=== PATIENT | male | born 2000 | race Caucasian/White ===

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

== ENCOUNTER 2019-01-17 01:10 | Emergency (ER) | payer MEDICAID, OTHER ==
[2019-01-17 02:44] VITALS: PULSE 80
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
[2019-01-17 05:15] VITALS: BP 175/101; O2SAT 98
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
== END 2019-01-17 05:30 | disposition short-term general hospital (02) ==
LOC: ED 01:10
DX: S62.366A Nondisplaced fracture of neck of fifth metacarpal bone, right hand, initial encounter for closed fracture (principal); M79.641 Pain in right hand; M79.89 Other specified soft tissue disorders; W22.09XA Striking against other stationary object, initial encounter; Y92.89 Other specified places as the place of occurrence of the external cause; S62.309A Unspecified fracture of unspecified metacarpal bone, initial encounter for closed fracture
CPT/HCPCS: 73130; 99284

== ENCOUNTER 2021-07-29 12:28 | Emergency (ER) | payer MEDICAID, OTHER ==
--- NOTE | 2021-07-29 12:58 | ERPHSYRPT ---
- History of Present Illness Time Seen by Provider: 07/29/21 12:48 Source: patient Exam Limitations: no limitations Patient Subjective Stated Complaint: Ankle injury Triage Nursing Assessment: Patient ambulated back to ED and transferred self to bed. Patient A+O X3. Patient's skin pink, warm and dry. Patient complains of right ankle pain 10/10 constant aching pain. Patient states right ankle hurts to bear weight. Swelling noted. Patient states he was walking a few days ago when he rolled his ankle and had has pain ever since. Physician History: Patient is a 21-year-old white male who was walking 2 days ago when he rolled his right ankle. He has continued to walk on the ankle because he is required to do so at work. He continues to complain of swelling and pain. He denies any other injury or health problems. Method of Injury: twisted Occurred: days ago (2) Quality: constant Severity of Pain-Max: moderate Severity of Pain-Current: moderate Lower Extremities Pain: ankle: right Modifying Factors: Improves With: movement Allergies/Adverse Reactions: No Known Drug Allergies Allergy (Verified 07/29/21 12:31) Hx Tetanus, Diphtheria Vaccination/Date Given: No Hx Influenza Vaccination/Date Given: No Hx Pneumococcal Vaccination/Date Given: No Immunizations Up to Date: Yes Travel Risk - International Travel Have you traveled outside of the country in past 3 weeks: No - Coronavirus Screening Are you exhibiting any of the following symptoms?: No Close contact with a COVID-19 positive Pt in past 14-21 Days: No - Vaccine Status Have you recieved a Covid-19 vaccination: No - Review of Systems Constitutional: No Fever, No Chills Eyes: No Symptoms Ears, Nose, & Throat: No Symptoms Respiratory: No Cough, No Dyspnea Cardiac: No Chest Pain, No Edema, No Syncope Abdominal/Gastrointestinal: No Abdominal Pain, No Nausea, No Vomiting, No Diarrhea Genitourinary Symptoms: No Dysuria Musculoskeletal: No Back Pain, No Neck Pain Skin: No Rash Neurological: No Dizziness, No Focal Weakness, No Sensory Changes Psychological: No Symptoms Endocrine: No Symptoms All Other Systems: Reviewed and Negative - Past Medical History Pertinent Past Medical History: Yes Musculoskeletal History: Fractures Psycho-Social History: Attention Deficit Disorder - Past Surgical History Past Surgical History: Yes Musculoskeletal: Orthopedic Surgery Other Surgical History: tonsilectomy. right foot/ankle - Social History Smoking Status: Never smoker Exposure to second hand smoke: No Drug Use: none Patient Lives Alone: No - Nursing Vital Signs Nursing Vital Signs: Initial Vital Signs Temperature 98.0 F 07/29/21 12:33 Pulse Rate 56 L 07/29/21 12:33 Respiratory Rate 18 07/29/21 12:33 Blood Pressure 146/81 07/29/21 12:33 O2 Sat by Pulse Oximetry 98 07/29/21 12:33 Pain Scale Pain Intensity 10 - Physical Exam General Appearance: mild distress, obese Eyes, Ears, Nose, Throat Exam: moist mucous membranes Neck Exam: non-tender, supple Back Exam: normal inspection, normal range of motion Hips Exam: bilateral: non-tender, normal inspection, normal range of motion Legs Exam: bilateral leg: non-tender, normal inspection, normal range of motion Knees Exam: bilateral knee: non-tender, normal inspection, normal range of motion Ankle Exam: right ankle: bone tenderness, limited range of motion, pain, soft tissue tenderness, swelling Foot Exam: bilateral foot: non-tender, normal inspection, normal range of motion, no evidence of injury Neuro/Tendon Exam: normal sensation, normal motor functions Mental Status Exam: alert, 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, cooperative Skin Exam: normal color, warm, dry SpO2 Interpretation: normal SpO2: 98 O2 Delivery: Room Air - Radiology Exams Right Ankle X-ray Interpretation: Interpreted by me, Negative Ordered Tests: Active Orders 24 hr Category Date Time Status Cold Application STAT Care 07/29/21 12:33 Active Crutches STAT Care 07/29/21 12:53 Active Splint STAT Care 07/29/21 12:53 Active ANKLE (3 VIEWS) Stat Exams 07/29/21 Taken - Progress Progress: unchanged - Departure Departure Disposition: Home Clinical Impression: Right ankle sprain Condition: Stable Critical Care Time: No Referrals: THERESA SHAFFER MD [Primary Care Provider] - Follow up/PCP as directed Instructions: Ankle Sprain (DC) Prescriptions: Hydrocodone/Acetaminophen [Hydrocodone-Acetamin 5-325 mg] 1 tab PO Q6HPRN PRN 3 Days #12 tablet MDD 4 PRN Reason: Pain
--- NOTE | 2021-07-29 20:36 | XRAY ---
Indication: Pain. Comparison: July 20, 2018. 3 view right ankle obtained. No bony, articular, or soft tissue abnormalities.
== END 2021-07-29 13:04 | disposition home or self-care (01) ==
LOC: ED 12:28
DX: S93.401A Sprain of unspecified ligament of right ankle, initial encounter (principal); V09.1XXA Pedestrian injured in unspecified nontraffic accident, initial encounter; Y93.01 Activity, walking, marching and hiking
CPT/HCPCS: 73610; 99283

== ENCOUNTER 2021-10-06 07:22 | Day surgery (SDC) | payer OTHER ==
[~2021-10-06 07:22] MED LIST: CEFAZOLIN 2 GM-D5W BAG** 2 GM/50 ML ML IV SCH; Lactated Ringers 1,000 ML IV SCH
[2021-10-06] MEDS ORDERED: CEFAZOLIN 2 GM-D5W BAG** 2 GM/50 ML ML IV ONE (07:51)
[2021-10-06] MEDS ORDERED: Lactated Ringers 1,000 ML IV ONE ×2 (07:52→11:50)
[2021-10-06] MEDS ORDERED: DIPRIVAN 200 MG/20 ML IV ONE ×2 (09:29→10:11)
[2021-10-06] MEDS ORDERED: Versed 2 MG/2 ML Injection ONE (09:29)
[2021-10-06] MEDS ORDERED: Quelicin Fliptop 200 MG/10 ML ONE (09:29)
[2021-10-06] MEDS ORDERED: Lactated Ringers 2,000 ML IV ONE (10:25)
[2021-10-06] MEDS ORDERED: BUPIVACAINE 0.5% VIAL IJ ONE (10:26)
[2021-10-06] MEDS ORDERED: XYLOCAINE 1% HCL 20 ML MDV ONE (10:26)
[2021-10-06] MEDS ORDERED: Kenalog-40 IM ONE (10:30)
[2021-10-06] MEDS ORDERED: Sodium Chloride 0.9% 1000 ML 1,000 ML ONE (11:02)
[2021-10-06] MEDS ORDERED: Decadron 4 MG INJ ONE (11:20)
[2021-10-06] MEDS ORDERED: Marcaine 0.5%/Epinephrine 10 ML ONE (11:20)
[2021-10-06] MEDS ORDERED: MORPHINE SULFATE 10 MG/ML ONE (12:14)
[2021-10-06] MEDS ORDERED: SUBLIMAZE 100 MCG/2 ML ONE (12:23)
[2021-10-06] MEDS ORDERED: TORAdol 30 mg Injection ONE (13:01)
[2021-10-06] MEDS ORDERED: Compazine 10 MG/2 ML ONE (13:01)
--- NOTE | 2021-10-06 14:39 | OP ---
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 2) Pain left ankle with positive Aditya's. 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 2) Pain left ankle with positive Aditya's. PROCEDURES: 1) Right ankle arthroscopy with synovectomy. 2) Microfracture of osteochondral defect posterior medial right talar dome. 3) Interarticular injection to left ankle. SURGEON: James Gould DPM. FIELD TECHNICIAN: None. ANESTHESIA: General plus postoperative popliteal and saphenous block. See anesthesia report for details. HEMOSTASIS: Pressure dressing postoperatively. ESTIMATED BLOOD LOSS: Less than 5 cc. MATERIALS: 3-0 Nylon. INJECTABLES: See anesthesia report for details. INDICATION FOR SURGERY: Abran is very pleasant 21 -year-old male who presented to my clinic with complaints of ankle pain. The patient had indications of wrapping up of his ankle with swing phase of gait, pain with ambulation for extended periods of time as well as a previous history of trauma and lateral ankle instability. At that time a MRI was obtained demonstrating an osteochondral defect measuring approximately 0.8 x 0.6 x 0.4 cm in length, width and depth. The patient opted initially to undergo nonsurgical intervention and proceeded with nonweight bearing as well as injection and failed both of those treatments. The patient at this time is willing to proceed with surgical intervention. Prior to surgical intervention the patient was experiencing very similar symptoms to the left lower extremity which he indicated he would like to have an injection while under anesthesia to the opposite extremity this was amenable. The patient understands all of the risks, complications and benefits including but not limited to infection, hematoma, seroma, possible failure of surgical intervention and potential need for surgical intervention in the future. The patient understands all of these risks and wishes to proceed. It is with that we do so. DESCRIPTION OF PROCEDURE AND FINDINGS: The patient was brought into the OR and placed on the OR room table in supine position. General anesthesia was administered to the patient until he was sedated. At this time a thigh méndez was applied to the patient's right lower extremity and the right lower extremity was prepped and draped in typical sterile fashion. At this time 30 cc of lactated Ringers was injected at the anticipated posterior-medial portal insufflating the joint. At this time an 11 blade was utilized to make a skin incision and a blunt curved mini-hemostat was utilized to puncture through the capsule of the anterior-medial aspect of the ankle joint. At this time the obturator and blunt trocar was introduced through the anterior-medial portal, removed and the camera was introduced. On the first time the camera was then pointed at the anterior-lateral aspect of the ankle capsule and utilizing the translumination 11 blade was utilized to make an incision at this site and using blunt dissection to perforate into the anterior-lateral aspect of the ankle capsule. At this time a significant amount of synovitis was identified and debrided from the anterior aspect of the ankle joint working our way back utilizing a medial to lateral approach. The synovitis was cleaned out from the hypertrophic areas in order to better visualize the entire ankle joint. At this time the posterior-medial talar dome of the ankle was identified and a blunt probe was utilized to cut the cartilage. The cartilage was weak at the posterior-medial aspect of the medial shoulder which was then debrided utilizing a combination of graspers, 3.7 mm aggressive shaver as well as curettage. The lesion at the medial talar dome is consistent with the area noted on the MRI that was obtained prior to surgical intervention. However demonstrated cartilage that was partially intact which was removed, debrided revealing the subchondral plate below. The subchondral plate was probed and deemed to be adequate for microfracture at this time. Microfracture was performed utilizing 60 degree microfracture pick at four specific points on the shoulder. The remaining joint was inspected for any areas of impingement. The AI TFO was debrided of low lying portion to prevent any anterior ankle impingement. The remaining structures appeared to be within normal limits and the remainder of synovectomy at this time was debrided utilizing aggressive shaver. Following this the trocar, camera and the shaver was removed from the surgical site. The ankle was flexed in dorsiflexion in order to expel the lactated Ringers from the ankle. Following this simple interrupted sutures of 3-0 Nylon was utilized to coapt the arthroscopic sites. Following this copious amounts of sterile saline were utilized in a superficial flush-type fashion to cleanse the skin this was dried and iodine, Adaptic, 4x4, Kerlix and a well-padded posterior splint was applied to the right lower extremity at this time. Following this the left lower extremity was prepped with some iodine at the ankle joint. An injection consisting of 3 cc of 1% lidocaine plain, 3 cc of 0.5% bupivacaine plain and 1 cc of Kenalog 40 mg/kg was injected into the left ankle in an interarticular ankle block-type fashion following this a Band-Aid was applied to the left ankle. Patient was then provided a postoperative popliteal and saphenous block to the right lower extremity. The patient was taken to the postoperative anesthesia care unit with vital signs stable and vascular status intact. The patient handled the anesthesia as well as the procedure without significant complication. Postoperative orders as indicated in the patients discharge chart.
[2021-10-06 14:47] VITALS: O2SAT 93
[2021-10-06 15:01] VITALS: BP 154/86; PULSE 78
== END 2021-10-06 14:35 | disposition home or self-care (01) ==
LOC: SDC 07:22
PROVIDERS: ATTEND Podiatrist Foot & Ankle Surgery
DX: M25.571 Pain in right ankle and joints of right foot (principal); S93.491A Sprain of other ligament of right ankle, initial encounter; M85.671 Other cyst of bone, right ankle and foot; M25.572 Pain in left ankle and joints of left foot; M21.961 Unspecified acquired deformity of right lower leg; R01.1 Cardiac murmur, unspecified; Z79.899 Other long term (current) drug therapy
CPT/HCPCS: 28100; 29895; 64447; 64450; 76942; 93005; J0330; J0690; J1100; J1885; J2250; J2270; J2704; J3010; J3301

== ENCOUNTER 2022-05-01 19:34 | Inpatient (IN) | payer OTHER ==
[2022-05-01] MEDS ORDERED: MORPHINE SULFATE 4 MG INJ IV ONE (20:23)
[2022-05-01] MEDS ORDERED: Zofran 4 MG/2 ML VIAL IV ONE (20:24)
[2022-05-01] MEDS ORDERED: Zofran 4 MG/2 ML VIAL ONE (20:35)
[2022-05-01] MEDS ORDERED: MORPHINE SULFATE 4 MG INJ ONE (20:35)
[2022-05-01 20:37] LABS: Absolute Neutrophil Ct (ANC) 13.35 x10^3/uL (1.4-6.9); Basophil (Absolute #) 0.07 x10^3/uL (0-0.4); Eosinophil % 2.8 % (0.00-5.0); Hemoglobin 14.2 g/dL (12.5-18.0); Lymphocyte (Absolute #) 2.19 x10^3/uL (1.0-4.6); Lymphocytes % 12.2 % (24.0-44.0); Mean Cell Volume 90.3 fL (78-100); Mean Corpuscular Hemoglobin 29.2 pg (26-32); Mean Corpuscular Hgb Concent. 32.3 g/dL (32-36); Mean Platelet Volume 10.8 fL (7.5-11.0); Monocyte (Absolute #) 1.71 x10^3/uL (0.0-1.3); Monocytes % 9.6 % (0.0-12.0); Neutrophil % 74.6 % (36.0-66.0); Platelet Count 242 x10^3/uL (150-450); Red Blood Count 4.87 x10^6/uL (4.1-5.6); Red Cell Distribution Width 14.1 % (11.5-14.0); White Blood Count 17.9 x10^3/uL (4.0-10.5)
[2022-05-01 20:52] LABS: ALBUMIN 4.7 g/dL (3.5-5.0); ALKALINE PHOSPHATASE 92 U/L (38-126); ANION GAP 15.3 MEQ/L (5-15); BLOOD UREA NITROGEN 8 mg/dL (9-20); CHLORIDE 98 mmol/L (98-107); Calcium 9.6 mg/dL (8.4-10.2); Carbon Dioxide 26 mmol/L (22-30); Creatinine 1 1.26 mg/dL (0.66-1.25); EST GLOMERULAR FILTRATION RATE > 60.0 ML/MIN; Glucose 120 mg/dL (74-106); Potassium 3.6 mmol/L (3.5-5.1); SGOT/AST 39 U/L (17-59); SGPT/ALT 43 U/L (0-50); SODIUM 136 mmol/L (137-145); Total Protein 8.6 g/dL (6.3-8.2)
[2022-05-01] MEDS ORDERED: VANCOMYCIN 1 GRAM/200 ML BAG 1 GM/200 ML PIGGYBACK IV ONE ×2 (22:32→23:15)
[2022-05-01] MEDS ORDERED: PIPERACILLIN/TAZOBACTAM 3.375 GM in Sodium Chloride 100ML MINI-BAG PLUS 100 ML IV ONE (22:33)
[2022-05-01] MEDS ORDERED: Sodium Chloride 100ML MINI-BAG PLUS 100 ML IV ONE (22:38)
[2022-05-01] MEDS ORDERED: PIPERACILLIN/TAZOBACTAM IV ONE (22:38)
--- NOTE | 2022-05-01 23:02 | ERPHSYRPT ---
- History of Present Illness Time Seen by Provider: 05/01/22 19:55 Source: patient Exam Limitations: no limitations Patient Subjective Stated Complaint: pt states "I have a spot on my buttock that started 3 days ago. It started bleeding and draining yellow liquid." Triage Nursing Assessment: pt ambulatory to bed by self, pt alert and oriented x3, pt c/o abscess located in L inner buttock that started 3 days ago, pt denies fever, last known dose of tylenol and motrin was at 1630 but did not help the pain, pt having trouble sitting on the bed or walking without pain Physician History: Patient is a 22-year-old male presents to our ED for evaluation of left buttock and rectal pain. Symptoms started approximately 3 days ago. Symptoms have been progressive. Today patient observed the area draining purulent material. In spite of the drainage patient experiencing significant pain. Patient states the pain is tracking proximal to the rectum. Patient denies a history of the same. No trauma. No fever. Symptoms are moderate in intensity. Patient states he is unable to walk or sit due to the level of pain. No objective fevers measured at home. Patient states otherwise healthy. He voices no other complaints or concerns at this time. Timing/Duration: day(s) (3 days ago) Severity: moderate Modifying Factors: Improves With: nothing Associated Symptoms: denies symptoms Allergies/Adverse Reactions: No Known Drug Allergies Allergy (Verified 05/01/22 19:46) Home Medications: No Reportable Medications [No Reported Medications] 05/02/22 [History] Hx Tetanus, Diphtheria Vaccination/Date Given: Yes Hx Influenza Vaccination/Date Given: No Hx Pneumococcal Vaccination/Date Given: No Immunizations Up to Date: Yes Travel Risk - International Travel Have you traveled outside of the country in past 3 weeks: No - Coronavirus Screening Are you exhibiting any of the following symptoms?: No Close contact with a COVID-19 positive Pt in past 14-21 Days: No - Vaccine Status Have you recieved a Covid-19 vaccination: No - Review of Systems Constitutional: No Symptoms, No Fever, No Chills Eyes: No Symptoms Ears, Nose, & Throat: No Symptoms Respiratory: No Symptoms, No Cough, No Dyspnea Cardiac: No Symptoms, No Chest Pain, No Edema, No Syncope Abdominal/Gastrointestinal: No Symptoms, No Abdominal Pain, No Nausea, No Vomiting, No Diarrhea Genitourinary Symptoms: No Symptoms, No Dysuria Musculoskeletal: No Symptoms, No Back Pain, No Neck Pain Skin: No Symptoms, No Rash Neurological: No Symptoms, No Dizziness, No Focal Weakness, No Sensory Changes Psychological: No Symptoms Endocrine: No Symptoms Hematologic/Lymphatic: No Symptoms Immunological/Allergic: No Symptoms All Other Systems: Reviewed and Negative - Past Medical History Pertinent Past Medical History: Yes Musculoskeletal History: Fractures Psycho-Social History: Attention Deficit Disorder - Past Surgical History Past Surgical History: Yes Musculoskeletal: Orthopedic Surgery Other Surgical History: tonsilectomy - Social History Smoking Status: Never smoker Exposure to second hand smoke: Yes Drug Use: marijuana Patient Lives Alone: No - Nursing Vital Signs Nursing Vital Signs: Initial Vital Signs Temperature 97.6 F 05/01/22 19:49 Pulse Rate 117 H 05/01/22 19:49 Respiratory Rate 18 05/01/22 19:49 Blood Pressure 138/76 05/01/22 19:49 O2 Sat by Pulse Oximetry 97 05/01/22 19:49 Pain Scale Pain Intensity 5 - Physical Exam General Appearance: no apparent distress, alert Eye Exam: PERRL/EOMI, eyes nml inspection Ears, Nose, Throat Exam: normal ENT inspection, TMs normal, pharynx normal, moist mucous membranes Neck Exam: normal inspection, non-tender, supple, full range of motion Respiratory Exam: normal breath sounds, lungs clear, airway intact, No respiratory distress Cardiovascular Exam: regular rate/rhythm, normal heart sounds, normal peripheral pulses Gastrointestinal/Abdomen Exam: soft, normal bowel sounds, No tenderness, No mass Back Exam: normal inspection, normal range of motion, No CVA tenderness, No vertebral tenderness Extremity Exam: normal inspection, normal range of motion, pelvis stable Neurologic Exam: alert, 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, cooperative, normal mood/affect, nml cerebellar function, nml station & gait, sensation nml, No motor deficits Skin Exam: normal color, warm, dry, other (Indurated skin and cellulitis tracking proximally into the rectum. There is a draining sinus observed. Patient has significant pain at this location), No rash Lymphatic Exam: No adenopathy SpO2 Interpretation: normal SpO2: 97 O2 Delivery: Room Air - Course Nursing assessment & vital signs reviewed: Yes - CT Exams Abdomen/Pelvis CT Interpretation: Tele-radiologist Report (No comps. Moderate cellulitis centered at anus and gluteus. No abscess or subcutaneous air. Incidental 25.4 cm fatty hepatomegaly, diverticulosis and remote left L1 fracture with 25% height loss) Ordered Tests: Medication Summary Generic Name Dose Route Start Last Admin Trade Name Antony PRN Reason Stop Dose Admin Hydrocodone Bitart/Acetaminophen 1 tab 05/02/22 20:09 05/03/22 23:48 Hydrocodone/Apap 5/325 Mg Tablet PO 05/07/22 20:08 1 tab Q4H PRN PRN Administration PAIN Piperacillin Sod/Tazobactam 100 mls @ 200 mls/hr 05/02/22 06:00 05/04/22 05:25 Sod 3.375 gm/ Sodium Chloride IV 05/05/22 05:59 200 mls/hr Q6HT ROSE Administration Metronidazole 500 mg in 100 mls @ 200 mls/hr 05/02/22 22:00 05/03/22 22:02 Flagyl 500 Mg Ivpb IV 06/01/22 21:59 200 mls/hr Q8HT ROSE Administration Morphine Sulfate 3 mg 05/02/22 20:08 05/03/22 22:03 Morphine Sulfate 4 Mg/Ml Injection IV 05/07/22 20:07 3 mg Q1HPRN PRN Administration PAIN Ondansetron HCl 4 mg 05/02/22 00:36 Ondansetron Hcl 4 Mg/2 Ml Vial IV 06/01/22 00:35 Q6H PRN PRN NAUSEA/VOMITING Discontinued Medications Generic Name Dose Route Start Last Admin Trade Name Antony PRN Reason Stop Dose Admin Vancomycin HCl 1 gm in 200 mls @ 125 mls/hr 05/01/22 22:32 05/01/22 23:16 Vancomycin 1 Gram/200 Ml Bag IV 05/02/22 00:07 125 ml/hr STAT ONE 125 mls/hr Administration Piperacillin Sod/Tazobactam 100 mls @ 200 mls/hr 05/01/22 22:33 05/01/22 22:40 Sod 3.375 gm/ Sodium Chloride IV 05/01/22 23:02 200 mls/hr STAT ONE Administration Sodium Chloride Confirm 05/01/22 22:38 Sodium Chloride 100ml Mini-Bag Plus Administered 05/01/22 22:39 Dose 100 mls @ ud IV .STK-MED ONE Vancomycin HCl Confirm 05/01/22 23:15 Vancomycin 1 Gram/200 Ml Bag Administered 05/01/22 23:16 Dose 1 gm in 200 mls @ ud IV .STK-MED ONE Sodium Chloride Confirm 05/02/22 04:36 Sodium Chloride 100ml Mini-Bag Plus Administered 05/02/22 04:37 Dose 100 mls @ ud IV .STK-MED ONE Lactated Ringer's 1,000 mls @ 50 mls/hr 05/02/22 18:00 05/03/22 16:18 Lactated Ringers IV 06/01/22 17:59 Not Given .Q20H ROSE Lidocaine/Epinephrine Confirm 05/02/22 18:43 Lidocaine Hcl/Epinephrine 1% 20 Ml Administered 05/02/22 18:44 Dose 1 ml .ROUTE .STK-MED ONE Morphine Sulfate 4 mg 05/01/22 20:23 05/01/22 20:37 Morphine Sulfate 4 Mg/Ml Injection IV 05/01/22 20:24 4 mg STAT ONE Administration Morphine Sulfate Confirm 05/01/22 20:35 Morphine Sulfate 4 Mg/Ml Injection Administered 05/01/22 20:36 Dose 4 mg .ROUTE .STK-MED ONE Morphine Sulfate 4 mg 05/02/22 00:36 05/02/22 22:20 Morphine Sulfate 4 Mg/Ml Injection IV 05/07/22 00:35 4 mg Q4H PRN PRN Administration PAIN Morphine Sulfate Confirm 05/02/22 19:18 Morphine Sulfate 10 Mg/Ml Injection Administered 05/02/22 19:19 Dose 10 mg .ROUTE .STK-MED ONE Ondansetron HCl 4 mg 05/01/22 20:24 05/01/22 20:37 Ondansetron Hcl 4 Mg/2 Ml Vial IV 05/01/22 20:25 4 mg STAT ONE Administration Ondansetron HCl Confirm 05/01/22 20:35 Ondansetron Hcl 4 Mg/2 Ml Vial Administered 05/01/22 20:36 Dose 4 mg .ROUTE .STK-MED ONE Piperacillin Sod/Tazobactam Sod Confirm 05/01/22 22:38 Piperacillin/Tazobactam Sodium 3.375 Gm Vial Administered 05/01/22 22:39 Dose 3.375 gm IV .STK-MED ONE Piperacillin Sod/Tazobactam Sod Confirm 05/02/22 04:34 Piperacillin/Tazobactam Sodium 3.375 Gm Vial Administered 05/02/22 04:35 Dose 3.375 gm IV .[facility] ONE Lab/Rad Data: Laboratory Result Diagrams 05/01/22 20:35 05/01/22 20:35 Laboratory Results 05/01/22 05/01/22 05/01/22 Range/Units 22:38 20:35 20:35 WBC 17.9 H (4.0-10.5) x10^3/uL RBC 4.87 (4.1-5.6) x10^6/uL Hgb 14.2 (12.5-18.0) g/dL Hct 44.0 (42-50) % MCV 90.3 (78-100) fL MCH 29.2 (26-32) pg MCHC 32.3 (32-36) g/dL RDW 14.1 H (11.5-14.0) % Plt Count 242 (150-450) x10^3/uL MPV 10.8 (7.5-11.0) fL Gran % 74.6 H (36.0-66.0) % Immature Gran % (Auto) 0.4 (0.00-0.4) % Nucleat RBC Rel Count 0.0 (0.00-0.1) % Eos # (Auto) 0.50 (0-0.5) x10^3/uL Immature Gran # (Auto) 0.07 H (0.00-0.03) x10^3u/L Absolute Lymphs (auto) 2.19 (1.0-4.6) x10^3/uL Absolute Monos (auto) 1.71 H (0.0-1.3) x10^3/uL Absolute Nucleated RBC 0.00 (0.00-0.01) x10^3u/L Lymphocytes % 12.2 L (24.0-44.0) % Monocytes % 9.6 (0.0-12.0) % Eosinophils % 2.8 (0.00-5.0) % Basophils % 0.4 (0.0-0.4) % Absolute Granulocytes 13.35 H (1.4-6.9) x10^3/uL Basophils # 0.07 (0-0.4) x10^3/uL Sodium 136 L (137-145) mmol/L Potassium 3.6 (3.5-5.1) mmol/L Chloride 98 (98-107) mmol/L Carbon Dioxide 26 (22-30) mmol/L Anion Gap 15.3 H (5-15) MEQ/L BUN 8 L (9-20) mg/dL Creatinine 1.26 H (0.66-1.25) mg/dL Estimated GFR > 60.0 ML/MIN Glucose 120 H (74-106) mg/dL Calcium 9.6 (8.4-10.2) mg/dL Total Bilirubin 1.40 H (0.2-1.3) mg/dL AST 39 (17-59) U/L ALT 43 (0-50) U/L Alkaline Phosphatase 92 (38-126) U/L Serum Total Protein 8.6 H (6.3-8.2) g/dL Albumin 4.7 (3.5-5.0) g/dL Influenza Type A Ag NEGATIVE (NEGATIVE) Influenza Type B Ag NEGATIVE (NEGATIVE) RSV (PCR) NEGATIVE (Negative) SARS-CoV-2 (PCR) POSITIVE A (NEGATIVE) - Progress Progress: improved Progress Note: Case discussed with who accepts admission to observation. In light of patient's cellulitis antibiotics initiated. Plan of care discussed with patient. He agrees to admission at [facility] for further evaluation and treatment. Portions of this note were created with voice recognition technology. There may be grammatical, spelling, punctuation or sound alike errors 05/04/22 06:32 Discussed with : Carmen Will see patient in: hospital (observation) Counseled pt/family regarding: lab results, diagnosis, rad results - Departure Departure Disposition: Observation Clinical Impression: Hepatomegaly, Diverticulosis, Remote L1 fracture Cellulitis Qualifiers: Site of cellulitis: buttock Qualified Code(s): L03.317 - Cellulitis of buttock Condition: Stable Critical Care Time: No
[2022-05-01 23:17] LABS: INFLUENZA A NEGATIVE (NEGATIVE); INFLUENZA B NEGATIVE (NEGATIVE); RESPIRATORY SYNCTIAL VIRUS NEGATIVE (Negative)
[2022-05-01 23:29] LABS: SARS-CoV-2 Xpert Express POSITIVE (NEGATIVE)
[2022-05-02] MEDS ORDERED: Zofran 4 MG/2 ML VIAL IV PRN (00:36)
[2022-05-02] MEDS: MORPHINE SULFATE 4 MG INJ IV PRN ×4 (00:44→22:20)
[2022-05-02] MEDS ORDERED: PIPERACILLIN/TAZOBACTAM IV ONE (04:34)
[2022-05-02] MEDS ORDERED: Sodium Chloride 100ML MINI-BAG PLUS 100 ML IV ONE (04:36)
[2022-05-02 05:18] LABS: Absolute Neutrophil Ct (ANC) 11.09 x10^3/uL (1.4-6.9); Eosinophil % 3.7 % (0.00-5.0); Eosinophil (Absolute #) 0.64 x10^3/uL (0-0.5); Hematocrit 41.5 % (42-50); Hemoglobin 13.4 g/dL (12.5-18.0); Lymphocyte (Absolute #) 3.66 x10^3/uL (1.0-4.6); Mean Cell Volume 90.4 fL (78-100); Mean Corpuscular Hemoglobin 29.2 pg (26-32); Mean Corpuscular Hgb Concent. 32.3 g/dL (32-36); Mean Platelet Volume 11.5 fL (7.5-11.0); Monocyte (Absolute #) 1.82 x10^3/uL (0.0-1.3); Monocytes % 10.5 % (0.0-12.0); Neutrophil % 63.7 % (36.0-66.0); Platelet Count 218 x10^3/uL (150-450); Red Blood Count 4.59 x10^6/uL (4.1-5.6); Red Cell Distribution Width 14.5 % (11.5-14.0); White Blood Count 17.4 x10^3/uL (4.0-10.5)
[2022-05-02] MEDS: PIPERACILLIN/TAZOBACTAM 3.375 GM in Sodium Chloride 100ML MINI-BAG PLUS 100 ML IV SCH ×4 (05:43→22:59)
[2022-05-02 06:09] LABS: ALBUMIN 4.2 g/dL (3.5-5.0); ALKALINE PHOSPHATASE 92 U/L (38-126); ANION GAP 12.1 MEQ/L (5-15); BLOOD UREA NITROGEN 8 mg/dL (9-20); CHLORIDE 99 mmol/L (98-107); Calcium 9.1 mg/dL (8.4-10.2); Carbon Dioxide 28 mmol/L (22-30); Creatinine 1 1.08 mg/dL (0.66-1.25); EST GLOMERULAR FILTRATION RATE > 60.0 ML/MIN; Glucose 134 mg/dL (74-106); Potassium 3.5 mmol/L (3.5-5.1); SGOT/AST 37 U/L (17-59); SGPT/ALT 35 U/L (0-50); SODIUM 135 mmol/L (137-145); Total Protein 7.4 g/dL (6.3-8.2)
[2022-05-02 06:49] LABS: Slide Review 1 YES
--- NOTE | 2022-05-02 08:54 | XRAY ---
Indication: Rectal pain and bleeding. Constipation. Perirectal abscess. Multiple contiguous axial images obtained through the abdomen and pelvis using 100 cc Isovue 370 contrast. Comparison: None Lung bases are hyperinflated with small subpleural right lower lobe calcified granuloma. No infiltrate or effusion. Heart not enlarged. There is moderate cutaneous/subcutaneous induration centered around the anus and surrounding gluteus favoring cellulitis. No abscess or subcutaneous emphysema. A few prominent bilateral iliac chain and bilateral inguinal lymph nodes, largest on the left measuring 2.1 x 3.4 cm presumed reactive. Stomach is distended with food/fluid. Noncontrasted stomach and bowel loops appear nonobstructed with normal appendix. No free fluid/air. Incidental 25.4 cm fatty hepatomegaly. Remaining liver, gallbladder, pancreas, spleen, adrenal glands, kidneys, ureters, bladder, and aorta are unremarkable. Osseous structures intact with remote appearing L1 superior endplate fracture with approximately 25% height loss. Small multilevel thoracolumbar Schmorl nodes. Impression: 1. Cellulitis centered around the anus and surrounding gluteus. No abscess or subcutaneous emphysema. Reactive prominent bilateral pelvic/inguinal lymphadenopathy. 2. Incidental fatty hepatomegaly and remote L1 endplate fracture. 3. Remaining CT abdomen/pelvis with contrast exam is negative.
[2022-05-02] MEDS: Lactated Ringers 1,000 ML IV SCH (17:36)
--- NOTE | 2022-05-02 18:25 | PCM.HP ---
History of Present Illness - Chief Complaint Chief Complaint: swelling on buttock area for 1 week History of Present Illness: is a 22 year old male.presents to our ED for evaluation of left buttock and rectal pain. Symptoms started approximately 3 days ago. Symptoms have been progressive. Today patient observed the area draining purulent material. In spite of the drainage patient experiencing significant pain. Patient states the pain is tracking proximal to the rectum. Patient denies a history of the same. No trauma. No fever. Symptoms are moderate in intensity. Patient states he is unable to walk or sit due to the level of pain. No objective fevers measured at home. Patient states otherwise healthy. He voices no other complaints or concerns at this time. Timing/Duration: day(s) (3 days ago) Severity: moderate Modifying Factors: Improves With: nothing Associated Symptoms: denies symptoms - Review of Systems Constitutional: No Fever, No Chills Eyes: No Symptoms Ears, Nose, & Throat: No Symptoms Respiratory: No Cough, No Short Of Breath Cardiac: No Chest Pain, No Edema, No Syncope Abdominal/Gastrointestinal: No Abdominal Pain, No Nausea, No Vomiting, No Diarrhea Genitourinary Symptoms: No Dysuria Musculoskeletal: No Back Pain, No Neck Pain Skin: Cellulitis, No Rash Neurological: No Dizziness, No Focal Weakness, No Sensory Changes Psychological: No Symptoms Endocrine: No Symptoms Hematologic/Lymphatic: No Symptoms Immunological/Allergic: No Symptoms Medications & Allergies Home Medications: Home Medication List No Reportable Medications [No Reported Medications] 05/02/22 [History Confirmed 05/02/22] Allergies/Adverse Reactions: Allergies Allergy/AdvReac Type Severity Reaction Status Date / Time No Known Drug Allergies Allergy Verified 05/01/22 19:46 - Past Medical History Past Medical History: Yes Neurological History: No Pertinent History ENT History: No Pertinent History Cardiac History: No Pertinent History Respiratory History: No Pertinent History Endocrine Medical History: No Pertinent History Musculoskelatal History: No Pertinent History, Fractures GI Medical History: No Pertinent History History: No Pertinent History Pyscho-Social History: Attention Deficit Disorder Male Reproductive Disorders: No Pertinent History - Past Surgical History Past Surgical History: Yes Cardiac History: No Pertinent History GI Surgical History: No Pertinent History Genitourinary Surgical Hx: No Pertinent History Musculskeletal Surgical Hx: Orthopedic Surgery Other Surgical History: tonsilectomy - Social History Smoking Status: Never smoker Exposure to second hand smoke: No Alcohol: None Drug Use: marijuana - Physical Exam Vital Signs: Vital Signs - 24 hr Temp Pulse Resp BP Pulse Ox 05/02/22 17:40 98.0 F 60 16 118/70 95 05/02/22 16:00 98.0 F 60 16 118/70 95 05/02/22 12:00 97.9 F 71 16 144/88 98 05/02/22 07:55 97.6 F 64 16 133/75 97 05/02/22 04:00 97.7 F 80 19 134/74 94 L 05/02/22 01:54 98.4 F 67 20 123/63 94 L 05/02/22 01:21 92 L 05/02/22 01:18 77 16 92 L 05/01/22 23:50 80 18 128/63 95 05/01/22 23:04 97 05/01/22 21:47 90 18 97 05/01/22 20:42 96 H 18 129/67 96 05/01/22 19:49 97.6 F 117 H 18 138/76 97 General Appearance: no apparent distress, alert Neurologic Exam: alert, 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, cooperative, normal mood/affect, nml cerebellar function, nml station & gait, sensation nml, No motor deficits Eye Exam: PERRL/EOMI, eyes nml inspection Ears, Nose, Throat Exam: normal ENT inspection, TMs normal, pharynx normal, moist mucous membranes Neck Exam: normal inspection, non-tender, supple, full range of motion Respiratory Exam: normal breath sounds, lungs clear, No respiratory distress Cardiovascular Exam: regular rate/rhythm, normal heart sounds, normal peripheral pulses Gastrointestinal/Abdomen Exam: soft, normal bowel sounds, No tenderness, No mass Back Exam: normal inspection, normal range of motion, No CVA tenderness, No vertebral tenderness Extremity Exam: normal inspection, normal range of motion, pelvis stable Skin Exam: normal color, warm, dry, other (abscess on right buttock), No rash Lymphatic Exam: No adenopathy Results - Labs Lab/Micro Results: Lab Results-Last 24 Hours 05/01/22 05/01/22 05/01/22 Range/Units 20:35 20:35 22:38 WBC 17.9 H (4.0-10.5) x10^3/uL RBC 4.87 (4.1-5.6) x10^6/uL Hgb 14.2 (12.5-18.0) g/dL Hct 44.0 (42-50) % MCV 90.3 (78-100) fL MCH 29.2 (26-32) pg MCHC 32.3 (32-36) g/dL RDW 14.1 H (11.5-14.0) % Plt Count 242 (150-450) x10^3/uL MPV 10.8 (7.5-11.0) fL Gran % 74.6 H (36.0-66.0) % Immature Gran % (Auto) 0.4 (0.00-0.4) % Nucleat RBC Rel Count 0.0 (0.00-0.1) % Eos # (Auto) 0.50 (0-0.5) x10^3/uL Immature Gran # (Auto) 0.07 H (0.00-0.03) x10^3u/L Absolute Lymphs (auto) 2.19 (1.0-4.6) x10^3/uL Absolute Monos (auto) 1.71 H (0.0-1.3) x10^3/uL Absolute Nucleated RBC 0.00 (0.00-0.01) x10^3u/L Lymphocytes % 12.2 L (24.0-44.0) % Monocytes % 9.6 (0.0-12.0) % Eosinophils % 2.8 (0.00-5.0) % Basophils % 0.4 (0.0-0.4) % Absolute Granulocytes 13.35 H (1.4-6.9) x10^3/uL Basophils # 0.07 (0-0.4) x10^3/uL Sodium 136 L (137-145) mmol/L Potassium 3.6 (3.5-5.1) mmol/L Chloride 98 (98-107) mmol/L Carbon Dioxide 26 (22-30) mmol/L Anion Gap 15.3 H (5-15) MEQ/L BUN 8 L (9-20) mg/dL Creatinine 1.26 H (0.66-1.25) mg/dL Estimated GFR > 60.0 ML/MIN Glucose 120 H (74-106) mg/dL Calcium 9.6 (8.4-10.2) mg/dL Total Bilirubin 1.40 H (0.2-1.3) mg/dL AST 39 (17-59) U/L ALT 43 (0-50) U/L Alkaline Phosphatase 92 (38-126) U/L Serum Total Protein 8.6 H (6.3-8.2) g/dL Albumin 4.7 (3.5-5.0) g/dL Influenza Type A Ag NEGATIVE (NEGATIVE) Influenza Type B Ag NEGATIVE (NEGATIVE) RSV (PCR) NEGATIVE (Negative) SARS-CoV-2 (PCR) POSITIVE A (NEGATIVE) Slides for Path Review 05/02/22 05/02/22 Range/Units 04:20 04:20 WBC 17.4 H (4.0-10.5) x10^3/uL RBC 4.59 (4.1-5.6) x10^6/uL Hgb 13.4 (12.5-18.0) g/dL Hct 41.5 L (42-50) % MCV 90.4 (78-100) fL MCH 29.2 (26-32) pg MCHC 32.3 (32-36) g/dL RDW 14.5 H (11.5-14.0) % Plt Count 218 (150-450) x10^3/uL MPV 11.5 H (7.5-11.0) fL Gran % 63.7 (36.0-66.0) % Immature Gran % (Auto) 0.5 H (0.00-0.4) % Nucleat RBC Rel Count 0.0 (0.00-0.1) % Eos # (Auto) 0.64 H (0-0.5) x10^3/uL Immature Gran # (Auto) 0.08 H (0.00-0.03) x10^3u/L Absolute Lymphs (auto) 3.66 (1.0-4.6) x10^3/uL Absolute Monos (auto) 1.82 H (0.0-1.3) x10^3/uL Absolute Nucleated RBC 0.00 (0.00-0.01) x10^3u/L Lymphocytes % 21.0 L (24.0-44.0) % Monocytes % 10.5 (0.0-12.0) % Eosinophils % 3.7 (0.00-5.0) % Basophils % 0.6 (0.0-0.4) % Absolute Granulocytes 11.09 H (1.4-6.9) x10^3/uL Basophils # 0.10 (0-0.4) x10^3/uL Sodium 135 L (137-145) mmol/L Potassium 3.5 (3.5-5.1) mmol/L Chloride 99 (98-107) mmol/L Carbon Dioxide 28 (22-30) mmol/L Anion Gap 12.1 (5-15) MEQ/L BUN 8 L (9-20) mg/dL Creatinine 1.08 (0.66-1.25) mg/dL Estimated GFR > 60.0 ML/MIN Glucose 134 H (74-106) mg/dL Calcium 9.1 (8.4-10.2) mg/dL Total Bilirubin 1.10 (0.2-1.3) mg/dL AST 37 (17-59) U/L ALT 35 (0-50) U/L Alkaline Phosphatase 92 (38-126) U/L Serum Total Protein 7.4 (6.3-8.2) g/dL Albumin 4.2 (3.5-5.0) g/dL Influenza Type A Ag (NEGATIVE) Influenza Type B Ag (NEGATIVE) RSV (PCR) (Negative) SARS-CoV-2 (PCR) (NEGATIVE) Slides for Path Review YES - Radiology Impressions Radiology Exams & Impressions: Radiology Procedures Category Date Time Status ABDOMEN AND PELVIS W CONTRAST [CT] Stat Exams 05/01/22 20:23 Completed Assessment/Plan (1) Cellulitis Current Visit: Yes Status: Acute Qualifiers: Site of cellulitis: buttock Qualified Code(s): L03.317 - Cellulitis of buttock Assessment & Plan: Chief Complaint Diagnosis Abscess, cellulitis, COVID Allergies Allergy/AdvReac Type Severity Reaction Status Date / Time No Known Drug Allergies Allergy Verified 05/01/22 19:46 Vital Signs (Last 24 hours) Temp Pulse Resp BP Pulse Ox 05/02/22 17:40 98.0 F 60 16 118/70 95 05/02/22 16:00 98.0 F 60 16 118/70 95 05/02/22 12:00 97.9 F 71 16 144/88 98 05/02/22 07:55 97.6 F 64 16 133/75 97 05/02/22 04:00 97.7 F 80 19 134/74 94 L 05/02/22 01:54 98.4 F 67 20 123/63 94 L 05/02/22 01:21 92 L 05/02/22 01:18 77 16 92 L 05/01/22 23:50 80 18 128/63 95 05/01/22 23:04 97 05/01/22 21:47 90 18 97 05/01/22 20:42 96 H 18 129/67 96 05/01/22 19:49 97.6 F 117 H 18 138/76 97 Home Medications Medication Instructions Recorded Confirmed Last Taken Type No Reportable Medications [No 05/02/22 05/02/22 Unknown History Reported Medications] Current Medications Generic Name Dose Route Start Last Admin Trade Name Freq PRN Reason Stop Dose Admin Piperacillin Sod/Tazobactam 100 mls @ 200 mls/hr 05/02/22 06:00 05/02/22 17:36 Sod 3.375 gm/ Sodium Chloride IV 05/05/22 05:59 200 mls/hr Q6HT ROSE Administration Lactated Ringer's 1,000 mls @ 50 mls/hr 05/02/22 18:00 05/02/22 17:36 Lactated Ringers IV 06/01/22 17:59 50 mls/hr .Q20H ROSE Administration Morphine Sulfate 4 mg 05/02/22 00:36 05/02/22 15:33 Morphine Sulfate 4 Mg/Ml Injection IV 05/07/22 00:35 4 mg Q4H PRN PRN Administration PAIN Ondansetron HCl 4 mg 05/02/22 00:36 Ondansetron Hcl 4 Mg/2 Ml Vial IV 06/01/22 00:35 Q6H PRN PRN NAUSEA/VOMITING Discontinued Medications Generic Name Dose Route Start Last Admin Trade Name Freq PRN Reason Stop Dose Admin Vancomycin HCl 1 gm in 200 mls @ 125 mls/hr 05/01/22 22:32 05/01/22 23:16 Vancomycin 1 Gram/200 Ml Bag IV 05/02/22 00:07 125 ml/hr STAT ONE 125 mls/hr Administration Piperacillin Sod/Tazobactam 100 mls @ 200 mls/hr 05/01/22 22:33 08/09/22 22:40 Sod 3.375 gm/ Sodium Chloride IV 05/01/22 23:02 200 mls/hr STAT ONE Administration Sodium Chloride Confirm 05/01/22 22:38 Sodium Chloride 100ml Mini-Bag Plus Administered 05/01/22 22:39 Dose 100 mls @ ud IV .STK-MED ONE Vancomycin HCl Confirm 05/01/22 23:15 Vancomycin 1 Gram/200 Ml Bag Administered 05/01/22 23:16 Dose 1 gm in 200 mls @ ud IV .STK-MED ONE Sodium Chloride Confirm 05/02/22 04:36 Sodium Chloride 100ml Mini-Bag Plus Administered 05/02/22 04:37 Dose 100 mls @ ud IV .STK-MED ONE Morphine Sulfate 4 mg 05/01/22 20:23 05/01/22 20:37 Morphine Sulfate 4 Mg/Ml Injection IV 05/01/22 20:24 4 mg STAT ONE Administration Morphine Sulfate Confirm 05/01/22 20:35 Morphine Sulfate 4 Mg/Ml Injection Administered 05/01/22 20:36 Dose 4 mg .ROUTE .STK-MED ONE Ondansetron HCl 4 mg 05/01/22 20:24 05/01/22 20:37 Ondansetron Hcl 4 Mg/2 Ml Vial IV 05/01/22 20:25 4 mg STAT ONE Administration Ondansetron HCl Confirm 05/01/22 20:35 Ondansetron Hcl 4 Mg/2 Ml Vial Administered 05/01/22 20:36 Dose 4 mg .ROUTE .STK-MED ONE Piperacillin Sod/Tazobactam Sod Confirm 05/01/22 22:38 Piperacillin/Tazobactam Sodium 3.375 Gm Vial Administered 05/01/22 22:39 Dose 3.375 gm IV .STK-MED ONE Piperacillin Sod/Tazobactam Sod Confirm 05/02/22 04:34 Piperacillin/Tazobactam Sodium 3.375 Gm Vial Administered 05/02/22 04:35 Dose 3.375 gm IV .STK-MED ONE Intake & Output (Last 24 hours) 04/30/22 05/01/22 05/02/22 05/03/22 11:59 11:59 11:59 11:59 Intake Total 580 0 Balance 580 0 Weight 153.7 kg 153.7 kg Laboratory Results (Last 24 hours) 05/02/22 05/02/22 05/01/22 04:20 04:20 22:38 WBC 17.4 H RBC 4.59 Hgb 13.4 Hct 41.5 L MCV 90.4 MCH 29.2 MCHC 32.3 RDW 14.5 H Plt Count 218 MPV 11.5 H Gran % 63.7 Immature Gran % (Auto) 0.5 H Nucleat RBC Rel Count 0.0 Eos # (Auto) 0.64 H Immature Gran # (Auto) 0.08 H Absolute Lymphs (auto) 3.66 Absolute Monos (auto) 1.82 H Absolute Nucleated RBC 0.00 Lymphocytes % 21.0 L Monocytes % 10.5 Eosinophils % 3.7 Basophils % 0.6 Absolute Granulocytes 11.09 H Basophils # 0.10 Sodium 135 L Potassium 3.5 Chloride 99 Carbon Dioxide 28 Anion Gap 12.1 BUN 8 L Creatinine 1.08 Estimated GFR > 60.0 Glucose 134 H Calcium 9.1 Total Bilirubin 1.10 AST 37 ALT 35 Alkaline Phosphatase 92 Serum Total Protein 7.4 Albumin 4.2 Influenza Type A Ag NEGATIVE Influenza Type B Ag NEGATIVE RSV (PCR) NEGATIVE SARS-CoV-2 (PCR) POSITIVE A Slides for Path Review YES 05/01/22 05/01/22 20:35 20:35 WBC 17.9 H RBC 4.87 Hgb 14.2 Hct 44.0 MCV 90.3 MCH 29.2 MCHC 32.3 RDW 14.1 H Plt Count 242 MPV 10.8 Gran % 74.6 H Immature Gran % (Auto) 0.4 Nucleat RBC Rel Count 0.0 Eos # (Auto) 0.50 Immature Gran # (Auto) 0.07 H Absolute Lymphs (auto) 2.19 Absolute Monos (auto) 1.71 H Absolute Nucleated RBC 0.00 Lymphocytes % 12.2 L Monocytes % 9.6 Eosinophils % 2.8 Basophils % 0.4 Absolute Granulocytes 13.35 H Basophils # 0.07 Sodium 136 L Potassium 3.6 Chloride 98 Carbon Dioxide 26 Anion Gap 15.3 H BUN 8 L Creatinine 1.26 H Estimated GFR > 60.0 Glucose 120 H Calcium 9.6 Total Bilirubin 1.40 H AST 39 ALT 43 Alkaline Phosphatase 92 Serum Total Protein 8.6 H Albumin 4.7 Influenza Type A Ag Influenza Type B Ag RSV (PCR) SARS-CoV-2 (PCR) Slides for Path Review Orders (Last 24 hours) Category Date Time Status Bedrest with BRP/BSC ROUTINE Activity 05/02/22 00:36 Active Business Support Liaison STAT Care 05/02/22 00:36 Completed Code Status Order ROUTINE Care 05/02/22 00:36 Active Code Status Order ROUTINE Care 05/02/22 00:36 Completed IV Care Q6H Care 05/02/22 00:36 Active IV Care Q6H Care 05/02/22 00:36 Completed IV Insertion STAT Care 05/01/22 20:34 Completed Neuro Checks Q4H Care 05/02/22 00:[address] in Observation ROUTINE Care 05/02/22 00:36 Active Telemetry q4h Care 05/02/22 00:36 Active Vital Signs Q4H Care 05/02/22 00:36 Active House Regular Diet Diet 05/02/22 Breakfast Completed NPO Diet 05/02/22 11:49 Active Nutritional Admission Screen ONCE Diet 05/02/22 02:14 Active ABDOMEN AND PELVIS W CONTRAST [CT] Stat Exams 05/01/22 20:23 Completed CBC W DIFF AM.LAB Lab 05/02/22 04:20 Completed CBC W DIFF Stat Lab 05/01/22 20:35 Completed CMP AM.LAB Lab 05/02/22 04:20 Completed CMP Stat Lab 05/01/22 20:35 Completed COVID/FLU/RSV Panel Stat Lab 05/01/22 22:38 Completed Morphine Sulfate 4 mg Inj Med 05/01/22 20:35 Discontinued 4 mg .ROUTE .STK-MED ONE Morphine Sulfate 4 mg Inj Med 05/02/22 00:36 Active 4 mg IV Q4H PRN PRN Morphine Sulfate 4 mg Inj Med 05/01/22 20:23 Discontinued 4 mg IV STAT ONE NaCl 0.9% 100 ml Mini-Bag Plus [Sodium Chloride 100ML Med 05/01/22 22:38 Discontinued MINI-BAG PLUS] 100 ml IV UD NaCl 0.9% 100 ml Mini-Bag Plus [Sodium Chloride 100ML Med 05/02/22 04:36 Discontinued MINI-BAG PLUS] 100 ml IV UD Ondansetron HCl 4 mg/2 ml [Zofran 4 MG/2 ML VIAL] Med 05/01/22 20:35 Discontinued 4 mg .ROUTE .STK-MED ONE Ondansetron HCl 4 mg/2 ml [Zofran 4 MG/2 ML VIAL] Med 05/02/22 00:36 Acti ve 4 mg IV Q6H PRN PRN Ondansetron HCl 4 mg/2 ml [Zofran 4 MG/2 ML VIAL] Med 05/01/22 20:24 Discontinued 4 mg IV STAT ONE Piperacillin/Tazobactam 3.375G [Piperacillin/Tazobactam Med 05/01/22 22:38 Discontinued ] 3.375 gm IV .STK-MED ONE Piperacillin/Tazobactam 3.375G [Piperacillin/Tazobactam Med 05/02/22 04:34 Discontinued ] 3.375 gm IV .STK-MED ONE Piperacillin/Tazobactam 3.375G [Piperacillin/Tazobactam Med 05/02/22 06:00 Active ] 3.375 gm NaCl 0.9% 100 ml Mini-Bag Plus [Sodium Chloride 100ML MINI-BAG PLUS] 100 ml IV Q6HT Piperacillin/Tazobactam 3.375G [Piperacillin/Tazobactam Med 05/01/22 22:33 Discontinued ] 3.375 gm NaCl 0.9% 100 ml Mini-Bag Plus [Sodium Chloride 100ML MINI-BAG PLUS] 100 ml IV STAT Ringers Solution,Lactated [Lactated Ringers] 1,000 ml Med 05/02/22 18:00 Ordered IV 50 mls/hr Vancomycin/Water For Inj (Peg) [Vancomycin 1 Gram/200 Med 05/01/22 22:32 Discontinued ml Bag] 1 gm in 200 ml IV STAT Vancomycin/Water For Inj (Peg) [Vancomycin 1 Gram/200 Med 05/01/22 23:15 Discontinued ml Bag] 1 gm in 200 ml IV UD OT Screen per Nursing Assess ONCE OT 05/02/22 02:14 Completed PT Screen per Nursing Assess ONCE PT 05/02/22 02:14 Active Pulse Oximetry ROUTINE RT 05/02/22 00:36 Completed Respiratory Therapy Assessment DAILY RT 05/02/22 01:16 Completed Respiratory Therapy Consult ROUTINE RT 05/02/22 00:36 Completed Transfer Order Routine Transfer 05/02/22 Completed Patient Care Notes (Last 24 hours) 05/02/22 17:09 Nursing Note by Yasmin Sprague IS HERE ROUNDING ON PATIENT. Initialized on 05/02/22 17:09 - END OF NOTE 05/02/22 09:26 Nursing Note by Yasmin Sprague I called surgery consult to the [facility] and to 's office. I spoke with Radha in the office. Initialized on 05/02/22 09:26 - END OF NOTE Code(s): L03.90 - CELLULITIS, UNSPECIFIED (2) Hepatomegaly Current Visit: Yes Status: Acute Code(s): R16.0 - HEPATOMEGALY, NOT ELSEWHERE CLASSIFIED
[2022-05-02] MEDS ORDERED: XYLOCAINE 1%/Epi 1:100000 MDV 20 ML ONE (18:43)
[2022-05-02] MEDS ORDERED: MORPHINE SULFATE 10 MG/ML ONE (19:18)
[2022-05-02] MEDS: FLAGYL 500 MG IVPB 500 MG/100 ML BAG IV SCH (22:16)
[2022-05-03] MEDS: NORCO 5/325 MG PO PRN ×4 (04:29→23:48)
[2022-05-03] MEDS: PIPERACILLIN/TAZOBACTAM 3.375 GM in Sodium Chloride 100ML MINI-BAG PLUS 100 ML IV SCH ×4 (05:42→23:32)
[2022-05-03] MEDS: FLAGYL 500 MG IVPB 500 MG/100 ML BAG IV SCH ×3 (06:19→22:02)
--- NOTE | 2022-05-03 07:56 | CONS ---
CONSULT DATE: 05/02/2022 HISTORY: This patient is seen for Dr. Tien Nielson who is personal care worker for our group today. A 22-year-old overweight gentleman had a golf ball size bulge on his buttock pilonidal area towards the left. It started draining some on its own and has been draining for three days. It is still sore and it has not drained all the way. He had some persistent symptoms and desires opening up wider. He is on antibiotics here. He apparently got admitted yesterday but they did not call the surgeon personal care worker yesterday. PAST MEDICAL HISTORY: Attention deficit disorder. PAST SURGICAL HISTORY: He denied prior surgery back in this area. Tonsillectomy. HOME MEDICATIONS: Medications as listed per the MAR currently. ALLERGIES: NKDA. FAMILY HISTORY: Negative in regards to this problem. SOCIAL HISTORY: He uses some marijuana. He does chew tobacco. REVIEW OF SYSTEMS: Fourteen systems reviewed. No current chest pain or palpitations. Other systems negative or noncontributory as above and per preadmission assessment. He does not seem to be having significant symptoms. LAB DATA AND TESTS: His white count was 17 yesterday. His white count is 17 this morning, hemoglobin 13, platelet count is okay. There is some cellulitis around the anal area and gluteal area on CT scan. PHYSICAL EXAMINATION: GENERAL: No acute distress. HEENT: Sclera nonicteric. NECK: No JVD. CHEST: Equal excursion, nonlabored breathing. CVS: Regular rhythm and pulse. ABDOMEN: Obese, soft. EXTREMITIES: No cyanosis. : Towards the rectal area to pilonidal cleft draining some yellow purulence and a little bit towards the left tender and some induration around the area. NEURO: Alert, moving extremities grossly symmetrically. IMPRESSION: Buttock, perirectal possible partial pilonidal area infection. It is draining somewhat on its own but it is not improving quickly enough. I feel he would benefit from operative drainage under general anesthetic. General risk of anesthesia, deep vein thrombosis, pulmonary embolism, pneumonia. Risk of failure to heal. Risk that he could possibly develop [id number] if this is from an anorectal or crypt type gland. Infection might require other procedure at the same time. He understands that he will have an open wound and will need to change packing. General risk of anesthesia, deep vein thrombosis, pulmonary embolism, pneumonia, aches and pains but not limited to. I am seeing this patient for Dr. Tien Nielson. If anesthesia is able to do it tonight I will do it while I am here if not then maybe tomorrow. In the meantime continue IV antibiotics.
[2022-05-03 08:32] LABS: Hemoglobin 13.2 g/dL (12.5-18.0); Mean Cell Volume 92.3 fL (78-100); Mean Corpuscular Hemoglobin 29.7 pg (26-32); Mean Corpuscular Hgb Concent. 32.2 g/dL (32-36); Mean Platelet Volume 11.3 fL (7.5-11.0); Platelet Count 250 x10^3/uL (150-450); Red Blood Count 4.44 x10^6/uL (4.1-5.6); Red Cell Distribution Width 13.7 % (11.5-14.0); White Blood Count 17.2 x10^3/uL (4.0-10.5)
[2022-05-03 08:41] LABS: ANION GAP 11.5 MEQ/L (5-15); BLOOD UREA NITROGEN 8 mg/dL (9-20); CHLORIDE 100 mmol/L (98-107); Calcium 9.5 mg/dL (8.4-10.2); Carbon Dioxide 32 mmol/L (22-30); Creatinine 1 0.93 mg/dL (0.66-1.25); EST GLOMERULAR FILTRATION RATE > 60.0 ML/MIN; Glucose 167 mg/dL (74-106); SODIUM 139 mmol/L (137-145)
--- NOTE | 2022-05-03 09:21 | OP ---
SURGERY DATE/TIME: 05/02/2022 1820 PREOPERATIVE DIAGNOSIS: Persistent draining perirectal abscess. POSTOPERATIVE DIAGNOSIS: Persistent draining perirectal abscess. PROCEDURE: Drainage perirectal/ischial abscess. SURGEON: Dr. Goran Mann. ANESTHESIA: General. ESTIMATED BLOOD LOSS: Minimal. INDICATIONS: This patient was seen for Dr. Tien Nielson who was environmental compliance specialist for our group today. He asked that while I was down here doing an outpatient procedure that I do the procedure for him. He has a persistent draining perirectal abscess. I felt he would benefit from opening it up wider to help with quicker drainage and hopefully quicker recovery. Risks and benefits explained in detail and not limited to bleeding or infection, risk of developing [id number], risk of nonhealing or other infection possibly requiring other procedures, general risk of anesthesia, deep vein thrombosis, pulmonary embolism, pneumonia but not limited to. The patient is COVID positive. He agreed to the plan. DESCRIPTION OF PROCEDURE AND FINDINGS: After waiting some time for the staff to take the patient down to the OR, he was finally put to sleep. General anesthesia was induced. Prepped and draped in the usual sterile fashion. After official time out and no disagreement with planned procedure, in lithotomy position he had one small opening draining some foul purulence this is opened up to half dollar size incising the skin and just the subcu. No muscular tissue or deeper tissue was excised. This opened the skin and the subcu to allow for better drainage. Palpation of much deeper ischiorectal abscess is noted some are going both directions posteriorly. Culture was taken. Copious amount of irrigation irrigating clear as possible. Because of the degree of infection, it was quite friable, indurated around the area. The wound packed with some 0.5 inch Iodoform with a small piece of Surgicel left on raw skin. Appeared to have adequate hemostasis at this point. The patient tolerated the procedure. There was no family to discuss the findings with out in the waiting area. If they have questions, I can be paged. Otherwise starting tomorrow in the p.m. may remove the packing and repack with normal saline wet to dry on a daily basis and can do sitz bath if needed, continue antibiotics.
[2022-05-03 09:45] LABS: Potassium 4.5 mmol/L (3.5-5.1)
[2022-05-03] MEDS: MORPHINE SULFATE 4 MG INJ IV PRN ×2 (15:31→22:03)
[2022-05-03] MEDS: Lactated Ringers 1,000 ML IV SCH (16:18)
--- NOTE | 2022-05-03 18:31 | PCM.NOTE ---
Date and Time: 05/03/221829 Subjective Assessment: doing better - Review of Systems Constitutional: No Fever, No Chills Eyes: No Symptoms Ears, Nose, & Throat: No Symptoms Respiratory: No Cough, No Short Of Breath Cardiac: No Chest Pain, No Edema, No Syncope Abdominal/Gastrointestinal: No Abdominal Pain, No Nausea, No Vomiting, No Diarrhea Genitourinary Symptoms: No Dysuria Musculoskeletal: No Back Pain, No Neck Pain Skin: No Rash Neurological: No Dizziness, No Focal Weakness, No Sensory Changes Psychological: No Symptoms Endocrine: No Symptoms Hematologic/Lymphatic: No Symptoms Immunological/Allergic: No Symptoms Objective Exam General Appearance: no apparent distress, alert Neurologic Exam: alert, 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, cooperative, normal mood/affect, nml cerebellar function, sensation nml, No motor deficits Skin Exam: normal color, warm, dry Eye Exam: PERRL, EOMI, eyes nml inspection Ears, Nose, Throat Exam: normal ENT inspection, pharynx normal, moist mucous membranes Neck Exam: normal inspection, non-tender, supple, full range of motion Respiratory Exam: normal breath sounds, lungs clear, No respiratory distress Cardiovascular Exam: regular rate/rhythm, normal heart sounds Gastrointestinal/Abdomen Exam: soft, No tenderness, No mass Extremity Exam: normal inspection, normal range of motion Back Exam: normal inspection, normal range of motion, No CVA tenderness, No vertebral tenderness Male Genitalia Exam: deferred Rectal Exam: deferred OBJECTIVE DATA Vital Signs: Vital Signs - 24 hr Temp Pulse Resp BP Pulse Ox 05/03/22 15:37 98.2 F 97 H 16 133/71 97 05/03/22 11:51 98.2 F 102 H 16 148/85 95 05/03/22 07:24 97.9 F 54 L 16 110/65 97 05/03/22 04:00 96.9 F 55 L 18 119/67 95 05/03/22 00:00 97.9 F 59 L 20 135/72 97 05/02/22 22:15 98.0 F 67 18 129/68 98 05/02/22 21:15 97.9 F 75 20 129/67 96 05/02/22 20:45 96.8 F 83 20 129/69 94 L 05/02/22 20:15 96.9 F 77 18 125/65 93 L 05/02/22 20:00 98.4 F 77 18 125/65 91 L Pain Assessment - Last Documented Pain Intensity 7 Pain Scale Used 0-10 Pain Scale Intake and Output: Intake & Output 05/01/22 05/02/22 05/03/22 05/04/22 11:59 11:59 11:59 11:59 Intake Total 580 860 480 Balance 580 860 480 Weight 153.7 kg 153.7 kg Lab Results: Lab Results-Last 24 Hours 05/03/22 05/03/22 Range/Units 08:15 08:15 WBC 17.2 H (4.0-10.5) x10^3/uL RBC 4.44 (4.1-5.6) x10^6/uL Hgb 13.2 (12.5-18.0) g/dL Hct 41.0 L (42-50) % MCV 92.3 (78-100) fL MCH 29.7 (26-32) pg MCHC 32.2 (32-36) g/dL RDW 13.7 (11.5-14.0) % Plt Count 250 (150-450) x10^3/uL MPV 11.3 H (7.5-11.0) fL Sodium 139 (137-145) mmol/L Potassium 4.5 D (3.5-5.1) mmol/L Chloride 100 (98-107) mmol/L Carbon Dioxide 32 H (22-30) mmol/L Anion Gap 11.5 (5-15) MEQ/L BUN 8 L (9-20) mg/dL Creatinine 0.93 (0.66-1.25) mg/dL Estimated GFR > 60.0 ML/MIN Glucose 167 H (74-106) mg/dL Calcium 9.5 (8.4-10.2) mg/dL Radiology Exams: Radiology Procedures Category Date Time Status ABDOMEN AND PELVIS W CONTRAST [CT] Stat Exams 05/01/22 20:23 Completed Assessment/Plan (1) Cellulitis Current Visit: Yes Status: Acute Qualifiers: Site of cellulitis: buttock Qualified Code(s): L03.317 - Cellulitis of buttock Code(s): L03.90 - CELLULITIS, UNSPECIFIED (2) Hepatomegaly Current Visit: Yes Status: Acute Code(s): R16.0 - HEPATOMEGALY, NOT ELSEWHERE CLASSIFIED
[2022-05-04 05:20] LABS: Hematocrit 40.8 % (42-50); Hemoglobin 12.6 g/dL (12.5-18.0); Mean Cell Volume 93.6 fL (78-100); Mean Corpuscular Hemoglobin 28.9 pg (26-32); Mean Corpuscular Hgb Concent. 30.9 g/dL (32-36); Mean Platelet Volume 11.7 fL (7.5-11.0); Platelet Count 247 x10^3/uL (150-450); Red Blood Count 4.36 x10^6/uL (4.1-5.6); Red Cell Distribution Width 13.8 % (11.5-14.0); White Blood Count 13.9 x10^3/uL (4.0-10.5)
[2022-05-04] MEDS: PIPERACILLIN/TAZOBACTAM 3.375 GM in Sodium Chloride 100ML MINI-BAG PLUS 100 ML IV SCH ×4 (05:25→23:22)
[2022-05-04] MEDS: FLAGYL 500 MG IVPB 500 MG/100 ML BAG IV SCH ×3 (06:37→21:25)
[2022-05-04] MEDS: MORPHINE SULFATE 4 MG INJ IV PRN ×2 (11:31→23:27)
--- NOTE | 2022-05-04 17:08 | PCM.NOTE ---
Date and Time: 05/04/22 170 Subjective Assessment: doing ok. awaiting wound vaccum pump - Review of Systems Constitutional: No Fever, No Chills Eyes: No Symptoms Ears, Nose, & Throat: No Symptoms Respiratory: No Cough, No Short Of Breath Cardiac: No Chest Pain, No Edema, No Syncope Abdominal/Gastrointestinal: No Abdominal Pain, No Nausea, No Vomiting, No Diarrhea Genitourinary Symptoms: No Dysuria Musculoskeletal: No Back Pain, No Neck Pain Skin: Cellulitis, No Rash Neurological: No Dizziness, No Focal Weakness, No Sensory Changes Psychological: No Symptoms Endocrine: No Symptoms Hematologic/Lymphatic: No Symptoms Immunological/Allergic: No Symptoms Objective Exam General Appearance: no apparent distress, alert Neurologic Exam: alert, 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, cooperative, normal mood/affect, nml cerebellar function, sensation nml, No motor deficits Skin Exam: normal color, warm, dry Eye Exam: PERRL, EOMI, eyes nml inspection Ears, Nose, Throat Exam: normal ENT inspection, pharynx normal, moist mucous membranes Neck Exam: normal inspection, non-tender, supple, full range of motion Respiratory Exam: normal breath sounds, lungs clear, No respiratory distress Cardiovascular Exam: regular rate/rhythm, normal heart sounds Gastrointestinal/Abdomen Exam: soft, No tenderness, No mass Extremity Exam: normal inspection, normal range of motion Back Exam: normal inspection, normal range of motion, No CVA tenderness, No vertebral tenderness Male Genitalia Exam: deferred Rectal Exam: deferred OBJECTIVE DATA Vital Signs: Vital Signs - 24 hr Temp Pulse Resp BP Pulse Ox 05/04/22 12:00 98.3 F 53 L 15 135/93 97 05/04/22 08:00 97.8 F 52 L 13 118/58 97 05/04/22 06:34 97 05/04/22 04:00 97.5 F 55 L 20 133/83 99 05/03/22 20:00 97.1 F 75 19 143/75 94 L Pain Assessment - Last Documented Pain Intensity 3 Pain Scale Used 0-10 Pain Scale Intake and Output: Intake & Output 05/02/22 05/03/22 05/04/22 05/05/22 11:59 11:59 11:59 11:59 Intake Total 523 991 8738 Balance 200 252 1413 Weight 153.7 kg 153.7 kg Lab Results: Lab Results-Last 24 Hours 05/04/22 Range/Units 05:27 WBC 13.9 H (4.0-10.5) x10^3/uL RBC 4.36 (4.1-5.6) x10^6/uL Hgb 12.6 (12.5-18.0) g/dL Hct 40.8 L (42-50) % MCV 93.6 (78-100) fL MCH 28.9 (26-32) pg MCHC 30.9 L (32-36) g/dL RDW 13.8 (11.5-14.0) % Plt Count 247 (150-450) x10^3/uL MPV 11.7 H (7.5-11.0) fL Multi-Disciplinary Progress Notes: Multi-Disciplinary Progress Notes 05/04/22 15:11 Case Management Note by Steffany Villarreal Addendum entered by Steffany Villarreal 05/04/22 15:19: PHONE NUMBER BELOW FOR CAMIL[facility] IS INCORRECT- CORRECT NUMBER IS [phone] Original Note: CALLED [facility] PER REQUEST OF MICHAELA IN PT FOR WOUND VAC- REFERRAL INFO SENT. THEY REPORT THEY ARE NOT IN NETWORK. [facility] HAS WOUND VACS IN HOUSE FROM [facility]. CALLED REFERRAL TO CAMILO LARISA AT [facility] THEY REQUIRE 2 FORMS TO BE SIGNED- THESE WERE PLACED ON CHART FOR SURGEON TO SIGN THIS WEEKEND. ONCE FORMS ARE SIGNED- THESE NEED FAXED BACK WITH H&P, OP NOTE, DEMOGRAPHICS MICHAELA FROM PHYSICAL THERAPY PLANS TO PLACE WOUND VAC ON SATURDAY. NURSING TO CONTINUE CURRENT DRESSING CHANGE ORDERS UNTIL THEN. CAMILO LARISA REPORTS SHE CAN BE HERE SATURDAY EVENING TO ASSIST PHYSICAL THERAPY IF NEEDED. REFERRAL WAS ALSO FAXED TO [facility] TO MANAGE WOUND VAC AT HOME. PATIENT GIVEN EDUCATION ON HIGH PROTEIN DIET AND PER NURSE IS AGREEABLE TO PLAN. Initialized on 05/04/22 15:11 - END OF NOTE 05/04/22 13:11 Physical Therapy Note by Jennifer(L#[id number]),Michaela PT. HAS WOUND VAC ORDERED AND TO ARRIVE EARLY NEXT WEEK. NSG TO CONT. W/ DAILY WET TO DRY DRESSING CHANGES ORDERED UNTIL VAC ARRIVES. P.T. WILL EVALUATE WOUND AND ASSIST W/ VAC PLACEMENT WHEN VAC ARRIVES NEXT WEEK. Initialized on 05/04/22 13:11 - END OF NOTE Assessment/Plan (1) Cellulitis Current Visit: Yes Status: Acute Qualifiers: Site of cellulitis: buttock Qualified Code(s): L03.317 - Cellulitis of buttock Assessment & Plan: Chief Complaint Diagnosis CELLULITIS, WOUND CARE Allergies Allergy/AdvReac Type Severity Reaction Status Date / Time No Known Drug Allergies Allergy Verified 05/01/22 19:46 Vital Signs (Last 24 hours) Temp Pulse Resp BP Pulse Ox 05/04/22 12:00 98.3 F 53 L 15 135/93 97 05/04/22 08:00 97.8 F 52 L 13 118/58 97 05/04/22 06:34 97 05/04/22 04:00 97.5 F 55 L 20 133/83 99 05/03/22 20:00 97.1 F 75 19 143/75 94 L Home Medications Medication Instructions Recorded Confirmed Last Taken Type Hydrocodone/Acetaminophen 1 each PO Q6H PRN PRN 5 Days #20 05/04/22 Unknown Rx [Hydrocodone-Acetamin 10-325 mg] tablet MDD 4 Current Medications Generic Name Dose Route Start Last Admin Trade Name Freq PRN Reason Stop Dose Admin Hydrocodone Bitart/Acetaminophen 1 tablet 05/04/22 12:56 Hydrocodone/Acetamin 10-325 Mg Tablet PO 05/09/22 12:55 Q4H PRN PRN PAIN Piperacillin Sod/Tazobactam 100 mls @ 200 mls/hr 05/02/22 06:00 05/04/22 11:32 Sod 3.375 gm/ Sodium Chloride IV 05/06/22 05:59 200 mls/hr Q6HT ROSE Administration Metronidazole 500 mg in 100 mls @ 200 mls/hr 05/02/22 22:00 05/04/22 14:04 Flagyl 500 Mg Ivpb IV 06/01/22 21:59 200 mls/hr Q8HT ROSE Administration Morphine Sulfate 3 mg 05/02/22 20:08 05/04/22 11:31 Morphine Sulfate 4 Mg/Ml Injection IV 05/07/22 20:07 3 mg Q1HPRN PRN Administration PAIN Ondansetron HCl 4 mg 05/02/22 00:36 Ondansetron Hcl 4 Mg/2 Ml Vial IV 06/01/22 00:35 Q6H PRN PRN NAUSEA/VOMITING Discontinued Medications Generic Name Dose Route Start Last Admin Trade Name Freq PRN Reason Stop Dose Admin Hydrocodone Bitart/Acetaminophen 1 tab 05/02/22 20:09 05/03/22 23:48 Hydrocodone/Apap 5/325 Mg Tablet PO 05/07/22 20:08 1 tab Q4H PRN PRN Administration PAIN Vancomycin HCl 1 gm in 200 mls @ 125 mls/hr 05/01/22 22:32 05/01/22 23:16 Vancomycin 1 Gram/200 Ml Bag IV 05/02/22 00:07 125 ml/hr STAT ONE 125 mls/hr Administration Piperacillin Sod/Tazobactam 100 mls @ 200 mls/hr 05/01/22 22:33 05/01/22 22:40 Sod 3.375 gm/ Sodium Chloride IV 05/01/22 23:02 200 mls/hr STAT ONE Administration Sodium Chloride Confirm 05/01/22 22:38 Sodium Chloride 100ml Mini-Bag Plus Administered 05/01/22 22:39 Dose 100 mls @ ud IV .STK-MED ONE Vancomycin HCl Confirm 05/01/22 23:15 Vancomycin 1 Gram/200 Ml Bag Administered 05/01/22 23:16 Dose 1 gm in 200 mls @ ud IV .STK-MED ONE Sodium Chloride Confirm 05/02/22 04:36 Sodium Chloride 100ml Mini-Bag Plus Administered 05/02/22 04:37 Dose 100 mls @ ud IV .STK-MED ONE Lactated Ringer's 1,000 mls @ 50 mls/hr 05/02/22 18:00 05/03/22 16:18 Lactated Ringers IV 06/01/22 17:59 Not Given .Q20H ROSE Lidocaine/Epinephrine Confirm 05/02/22 18:43 Lidocaine Hcl/Epinephrine 1% 20 Ml Administered 05/02/22 18:44 Dose 1 ml .ROUTE .STK-MED ONE Morphine Sulfate 4 mg 05/01/22 20:23 05/01/22 20:37 Morphine Sulfate 4 Mg/Ml Injection IV 05/01/22 20:24 4 mg STAT ONE Administration Morphine Sulfate Confirm 05/01/22 20:35 Morphine Sulfate 4 Mg/Ml Injection Administered 05/01/22 20:36 Dose 4 mg .ROUTE .STK-MED ONE Morphine Sulfate 4 mg 05/02/22 00:36 05/02/22 22:20 Morphine Sulfate 4 Mg/Ml Injection IV 05/07/22 00:35 4 mg Q4H PRN PRN Administration PAIN Morphine Sulfate Confirm 05/02/22 19:18 Morphine Sulfate 10 Mg/Ml Injection Administered 05/02/22 19:19 Dose 10 mg .ROUTE .STK-MED ONE Ondansetron HCl 4 mg 05/01/22 20:24 05/01/22 20:37 Ondansetron Hcl 4 Mg/2 Ml Vial IV 05/01/22 20:25 4 mg STAT ONE Administration Ondansetron HCl Confirm 05/01/22 20:35 Ondansetron Hcl 4 Mg/2 Ml Vial Administered 05/01/22 20:36 Dose 4 mg .ROUTE .STK-MED ONE Piperacillin Sod/Tazobactam Sod Confirm 05/01/22 22:38 Piperacillin/Tazobactam Sodium 3.375 Gm Vial Administered 05/01/22 22:39 Dose 3.375 gm IV .STK-MED ONE Piperacillin Sod/Tazobactam Sod Confirm 05/02/22 04:34 Piperacillin/Tazobactam Sodium 3.375 Gm Vial Administered 05/02/22 04:35 Dose 3.375 gm IV .STK-MED ONE Intake & Output (Last 24 hours) 05/02/22 05/03/22 05/04/22 05/05/22 11:59 11:59 11:59 11:59 Intake Total 104 465 7489 Balance 697 391 9097 Weight 153.7 kg 153.7 kg Microbiology Results (Last 24 hours) 05/02/22 18:40 Perirectal Abscess Culture - Preliminary GRAM POSITIVE ID AND SENSITIVITY PENDING Laboratory Results (Last 24 hours) 05/04/22 05:27 WBC 13.9 H RBC 4.36 Hgb 12.6 Hct 40.8 L MCV 93.6 MCH 28.9 MCHC 30.9 L RDW 13.8 Plt Count 247 MPV 11.7 H Orders (Last 24 hours) Category Date Time Status Discharge Planning,Consult Routine Discharge 05/04/22 Active CBC AM.LAB Lab 05/04/22 05:27 Completed Hydrocodone/Acetaminophen [Hydrocodone-Acetamin 10-325 Med 05/04/22 12:56 Active mg] 1 tablet PO Q4H PRN PRN PT Eval & Treat ( Order) ONCE PT 05/04/22 10:06 Active Patient Care Notes (Last 24 hours) 05/04/22 15:11 Case Management Note by Steffany Villarreal Addendum entered by Steffany Villarreal 05/04/22 15:19: PHONE NUMBER BELOW FOR CAMILO IS INCORRECT- CORRECT NUMBER IS [phone] Original Note: CALLED [facility] PER REQUEST OF MICHAELA IN PT FOR WOUND VAC- REFERRAL INFO SENT. THEY REPORT THEY ARE NOT IN NETWORK. [facility] HAS WOUND VACS IN HOUSE FROM [facility]. CALLED REFERRAL TO CAMILO PERES AT [facility] THEY REQUIRE 2 FORMS TO BE SIGNED- THESE WERE PLACED ON CHART FOR SURGEON TO SIGN THIS WEEKEND. ONCE FORMS ARE SIGNED- THESE NEED FAXED BACK WITH H&P, OP NOTE, EFREN STOUT FROM PHYSICAL THERAPY PLANS TO PLACE WOUND VAC ON SATURDAY. NURSING TO CONTINUE CURRENT DRESSING CHANGE ORDERS UNTIL THEN. CAMILO PERES REPORTS SHE CAN BE HERE SATURDAY EVENING TO ASSIST PHYSICAL THERAPY IF NEEDED. REFERRAL WAS ALSO FAXED TO [facility] TO MANAGE WOUND VAC AT HOME. PATIENT GIVEN EDUCATION ON HIGH PROTEIN DIET AND PER NURSE IS AGREEABLE TO PLAN. Initialized on 05/04/22 15:11 - END OF NOTE 05/04/22 13:11 Physical Therapy Note by Jennifer(L#[id number])Michaela PT. HAS WOUND VAC ORDERED AND TO ARRIVE EARLY NEXT WEEK. NSG TO CONT. W/ DAILY WET TO DRY DRESSING CHANGES ORDERED UNTIL VAC ARRIVES. P.T. WILL EVALUATE WOUND AND ASSIST W/ VAC PLACEMENT WHEN VAC ARRIVES NEXT WEEK. Initialized on 05/04/22 13:11 - END OF NOTE 05/04/22 12:14 Nursing Note by Ana Goel wound noted to left buttock opening approx 1.5 cm x 1.5 cm with tunneling 4cm. wet to dry dressing applied with gauze packing. pt tolerated with some difficulty pain medication given prior to packing Initialized on 05/04/22 12:14 - END OF NOTE Code(s): L03.90 - CELLULITIS, UNSPECIFIED (2) Hepatomegaly Current Visit: Yes Status: Acute Code(s): R16.0 - HEPATOMEGALY, NOT ELSEWHERE CLASSIFIED
[2022-05-04] MEDS: HYDROCODONE-ACETAMIN 10-325 MG PO PRN (21:25)
[2022-05-05] MEDS: PIPERACILLIN/TAZOBACTAM 3.375 GM in Sodium Chloride 100ML MINI-BAG PLUS 100 ML IV SCH ×4 (05:01→23:01)
[2022-05-05] MEDS: HYDROCODONE-ACETAMIN 10-325 MG PO PRN ×3 (06:19→21:38)
[2022-05-05] MEDS: FLAGYL 500 MG IVPB 500 MG/100 ML BAG IV SCH ×3 (06:19→21:38)
[2022-05-05] MEDS: MORPHINE SULFATE 4 MG INJ IV PRN (14:55)
--- NOTE | 2022-05-05 14:57 | PCM.NOTE ---
Date and Time: 05/05/22 1454 Subjective Assessment: Pt has no pain at rest, 10/10 with movement. Tolerating po well. - Review of Systems Constitutional: No Fever Skin: Other (abscess) Objective Exam General Appearance: no apparent distress, obese Neurologic Exam: alert, 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, cooperative, normal mood/affect Skin Exam: warm, dry, other (L buttock, mid gluteal cleft, with packing present, mild yellow drainage. quite ttp.), No rash Neck Exam: non-tender Respiratory Exam: normal breath sounds, lungs clear, No crackles/rales, No rhonchi, No wheezing Cardiovascular Exam: regular rate/rhythm, normal heart sounds, No murmur Gastrointestinal/Abdomen Exam: soft, No normal bowel sounds (decreased but present), No tenderness, No distention, No mass, No guarding, No rebound Extremity Exam: normal inspection, No pedal edema, No swelling OBJECTIVE DATA Vital Signs: Vital Signs - 24 hr Temp Pulse Resp BP Pulse Ox 05/05/22 12:00 97.8 F 45 L 19 109/65 96 05/05/22 08:00 97.9 F 50 L 17 123/68 96 05/05/22 04:00 97.7 F 51 L 19 114/67 97 05/04/22 23:48 98.2 F 50 L 20 113/65 97 05/04/22 20:00 98.3 F 64 18 133/66 98 05/04/22 16:00 97.7 F 59 L 19 195/86 100 Pain Assessment - Last Documented Pain Intensity 8 Pain Scale Used 0-10 Pain Scale Intake and Output: Intake & Output 05/03/22 05/04/22 05/05/22 05/06/22 11:59 11:59 11:59 11:59 Intake Total 860 1680 2406 Balance 860 1680 2406 Weight 153.7 kg Multi-Disciplinary Progress Notes: Multi-Disciplinary Progress Notes 05/04/22 15:11 Case Management Note by Steffany Villarreal Addendum entered by Steffany Villarreal 05/04/22 15:19: PHONE NUMBER BELOW FOR CAMILO IS INCORRECT- CORRECT NUMBER IS [phone] Original Note: CALLED [facility] PER REQUEST OF ARGELIA IN PT FOR WOUND VAC- REFERRAL INFO SENT. THEY REPORT THEY ARE NOT IN NETWORK. [facility] HAS WOUND VACS IN HOUSE FROM [facility]. CALLED REFERRAL TO CAMILO PERES AT [facility] THEY REQUIRE 2 FORMS TO BE SIGNED- THESE WERE PLACED ON CHART FOR SURGEON TO SIGN THIS WEEKEND. ONCE FORMS ARE SIGNED- THESE NEED FAXED BACK WITH H&P, OP NOTE, DEMOGRAPHICS ARGELIA FROM PHYSICAL THERAPY PLANS TO PLACE WOUND VAC ON SATURDAY. NURSING TO CONTINUE CURRENT DRESSING CHANGE ORDERS UNTIL THEN. [facility] LARISA REPORTS SHE CAN BE HERE SATURDAY EVENING TO ASSIST PHYSICAL THERAPY IF NEEDED. REFERRAL WAS ALSO FAXED TO [facility] TO MANAGE WOUND VAC AT HOME. PATIENT GIVEN EDUCATION ON HIGH PROTEIN DIET AND PER NURSE IS AGREEABLE TO PLAN. Initialized on 05/04/22 15:11 - END OF NOTE Assessment/Plan (1) Abscess of buttock Current Visit: Yes Status: Acute Assessment & Plan: On and day #4. Surgery managing, thank you. Plan is for wound vac starting next week. Code(s): L02.31 - CUTANEOUS ABSCESS OF BUTTOCK
[2022-05-05] MEDS ORDERED: xanAX 0.25 MG PO PRN (23:00)
[2022-05-06] MEDS: HYDROCODONE-ACETAMIN 10-325 MG PO PRN ×3 (01:43→22:47)
[2022-05-06] MEDS: FLAGYL 500 MG IVPB 500 MG/100 ML BAG IV SCH ×2 (05:05→14:05)
[2022-05-06] MEDS: PIPERACILLIN/TAZOBACTAM 3.375 GM in Sodium Chloride 100ML MINI-BAG PLUS 100 ML IV SCH ×2 (05:41→13:09)
[2022-05-06] MEDS ORDERED: xanAX 0.25 MG PO SCH (10:00)
[2022-05-06 10:29] LABS: Absolute Neutrophil Ct (ANC) 6.16 x10^3/uL (1.4-6.9); Basophil (Absolute #) 0.09 x10^3/uL (0-0.4); Eosinophil % 5.7 % (0.00-5.0); Eosinophil (Absolute #) 0.64 x10^3/uL (0-0.5); Hematocrit 41.8 % (42-50); Hemoglobin 13.2 g/dL (12.5-18.0); Lymphocyte (Absolute #) 3.28 x10^3/uL (1.0-4.6); Lymphocytes % 29.4 % (24.0-44.0); Mean Cell Volume 93.7 fL (78-100); Mean Corpuscular Hemoglobin 29.6 pg (26-32); Mean Corpuscular Hgb Concent. 31.6 g/dL (32-36); Mean Platelet Volume 10.8 fL (7.5-11.0); Monocyte (Absolute #) 0.82 x10^3/uL (0.0-1.3); Monocytes % 7.4 % (0.0-12.0); Neutrophil % 55.4 % (36.0-66.0); Platelet Count 285 x10^3/uL (150-450); Red Blood Count 4.46 x10^6/uL (4.1-5.6); Red Cell Distribution Width 13.6 % (11.5-14.0); White Blood Count 11.1 x10^3/uL (4.0-10.5)
[2022-05-06 10:40] LABS: ALBUMIN 3.3 g/dL (3.5-5.0); ALKALINE PHOSPHATASE 59 U/L (38-126); ANION GAP 9.4 MEQ/L (5-15); BLOOD UREA NITROGEN 4 mg/dL (9-20); CHLORIDE 107 mmol/L (98-107); Calcium 8.7 mg/dL (8.4-10.2); Carbon Dioxide 28 mmol/L (22-30); Creatinine 1 0.89 mg/dL (0.66-1.25); EST GLOMERULAR FILTRATION RATE > 60.0 ML/MIN; Glucose 102 mg/dL (74-106); Potassium 3.7 mmol/L (3.5-5.1); SGOT/AST 45 U/L (17-59); SGPT/ALT 51 U/L (0-50); SODIUM 141 mmol/L (137-145); Total Protein 6.6 g/dL (6.3-8.2)
[2022-05-06] MEDS: xanAX 0.25 MG PO PRN ×2 (13:10→22:47)
--- NOTE | 2022-05-06 15:44 | PCM.NOTE ---
Date and Time: 05/06/22 1540 Subjective Assessment: Pt c/o tenderness of the abscess site. Keeps talking about going home. Pulse in the 40s-50s, as it has been since his admission. C/o "bloodshot" L eye, no pain. Visual acuity wnl per his perception. - Review of Systems Constitutional: No Fever Abdominal/Gastrointestinal: No Vomiting Objective Exam General Appearance: no apparent distress, alert, obese Neurologic Exam: 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, cooperative Skin Exam: warm, dry, other (L gluteal cleft, ttp, no induration. there is some evidence of seroasanguinous drainage on the absorbent pad. quite ttp.), No rash Eye Exam: eyes nml inspection Ears, Nose, Throat Exam: moist mucous membranes, other (L conjunctiva with minimal hemorrhage) Neck Exam: normal inspection Respiratory Exam: normal breath sounds, lungs clear, No crackles/rales, No rhonchi, No wheezing Cardiovascular Exam: normal heart sounds, bradycardia, No murmur Gastrointestinal/Abdomen Exam: soft, normal bowel sounds, No tenderness, No distention, No mass, No guarding, No rebound Extremity Exam: normal inspection, No pedal edema, No swelling Back Exam: normal inspection, No rash OBJECTIVE DATA Vital Signs: Vital Signs - 24 hr Temp Pulse Resp BP Pulse Ox 05/06/22 12:00 97.9 F 46 L 19 131/76 96 05/06/22 07:56 97.9 F 42 L 21 131/60 98 05/06/22 04:00 98.1 F 44 L 16 107/53 98 05/05/22 23:10 97.6 F 51 L 18 165/76 98 05/05/22 20:00 98.4 F 48 L 18 119/73 98 05/05/22 16:00 97.7 F 47 L 19 121/71 96 Pain Assessment - Last Documented Pain Intensity 8 Pain Scale Used [facility] Intake and Output: Intake & Output 05/04/22 05/05/22 05/06/22 05/07/22 11:59 11:59 11:59 11:59 Intake Total 1680 2406 2438 Balance 1680 2406 2438 Lab Results: Lab Results-Last 24 Hours 05/06/22 05/06/22 Range/Units 10:20 10:20 WBC 11.1 H (4.0-10.5) x10^3/uL RBC 4.46 (4.1-5.6) x10^6/uL Hgb 13.2 (12.5-18.0) g/dL Hct 41.8 L (42-50) % MCV 93.7 (78-100) fL MCH 29.6 (26-32) pg MCHC 31.6 L (32-36) g/dL RDW 13.6 (11.5-14.0) % Plt Count 285 (150-450) x10^3/uL MPV 10.8 (7.5-11.0) fL Gran % 55.4 (36.0-66.0) % Immature Gran % (Auto) 1.3 H (0.00-0.4) % Nucleat RBC Rel Count 0.0 (0.00-0.1) % Eos # (Auto) 0.64 H (0-0.5) x10^3/uL Immature Gran # (Auto) 0.15 H (0.00-0.03) x10^3u/L Absolute Lymphs (auto) 3.28 (1.0-4.6) x10^3/uL Absolute Monos (auto) 0.82 (0.0-1.3) x10^3/uL Absolute Nucleated RBC 0.00 (0.00-0.01) x10^3u/L Lymphocytes % 29.4 (24.0-44.0) % Monocytes % 7.4 (0.0-12.0) % Eosinophils % 5.7 H (0.00-5.0) % Basophils % 0.8 (0.0-0.4) % Absolute Granulocytes 6.16 (1.4-6.9) x10^3/uL Basophils # 0.09 (0-0.4) x10^3/uL Sodium 141 (137-145) mmol/L Potassium 3.7 (3.5-5.1) mmol/L Chloride 107 (98-107) mmol/L Carbon Dioxide 28 (22-30) mmol/L Anion Gap 9.4 (5-15) MEQ/L BUN 4 L (9-20) mg/dL Creatinine 0.89 (0.66-1.25) mg/dL Estimated GFR > 60.0 ML/MIN Glucose 102 (74-106) mg/dL Calcium 8.7 (8.4-10.2) mg/dL Total Bilirubin 0.40 (0.2-1.3) mg/dL AST 45 (17-59) U/L ALT 51 H (0-50) U/L Alkaline Phosphatase 59 (38-126) U/L Serum Total Protein 6.6 (6.3-8.2) g/dL Albumin 3.3 L (3.5-5.0) g/dL Multi-Disciplinary Progress Notes: Multi-Disciplinary Progress Notes 05/06/22 11:21 Nutrition Note by Sydney Villalba F/u Note: Diet resumed to house regular with 100% po intake. Labs 05/06= BUN 4, alb 3.3. no weight since 05/02. Recommend to con't with house regular diet. goal #1)maintain po intake >=75% Will monitor and f/u prn. T.PASHA Villalba Initialized on 05/06/22 11:21 - END OF NOTE Assessment/Plan (1) Abscess of buttock Current Visit: Yes Status: Acute Assessment & Plan: He is on day #5 flagyl and zosyn. S/P I&D last week. Await possible wound vac placement tomorrow. Code(s): L02.31 - CUTANEOUS ABSCESS OF BUTTOCK (2) COVID-19 Current Visit: Yes Status: Acute Code(s): U07.1 - COVID-19 (3) Bradycardia Current Visit: Yes Status: Chronic Assessment & Plan: chronic Code(s): R00.1 - BRADYCARDIA, UNSPECIFIED (4) Conjunctival hemorrhage Current Visit: Yes Status: Acute Qualifiers: Laterality: left Qualified Code(s): H11.32 - Conjunctival hemorrhage, left eye Assessment & Plan: minimal, just observe. Code(s): H11.30 - CONJUNCTIVAL HEMORRHAGE, UNSPECIFIED EYE
[2022-05-06] MEDS ORDERED: PHARMACY DOSING REQUIRED: VANCOMYCIN IV STA (16:05)
[2022-05-06] MEDS: VANCOMYCIN 2 GRAM/400 ML BAG 2 GM/400 ML PIGGYBACK IV SCH (18:08)
[2022-05-06] MEDS: MORPHINE SULFATE 4 MG INJ IV PRN (18:50)
[2022-05-06 23:55] VITALS: O2SAT 98
[2022-05-07] MEDS: VANCOMYCIN 2 GRAM/400 ML BAG 2 GM/400 ML PIGGYBACK IV SCH ×2 (00:22→10:19)
--- NOTE | 2022-05-07 08:24 | PCM.NOTE ---
Date and Time: 05/07/22822 Subjective Assessment: doing ok - Review of Systems Constitutional: No Fever, No Chills Eyes: No Symptoms Ears, Nose, & Throat: No Symptoms Respiratory: No Cough, No Short Of Breath Cardiac: No Chest Pain, No Edema, No Syncope Abdominal/Gastrointestinal: No Abdominal Pain, No Nausea, No Vomiting, No Diarrhea Genitourinary Symptoms: No Dysuria Musculoskeletal: No Back Pain, No Neck Pain Skin: Cellulitis, No Rash Neurological: No Dizziness, No Focal Weakness, No Sensory Changes Psychological: No Symptoms Endocrine: No Symptoms Hematologic/Lymphatic: No Symptoms Immunological/Allergic: No Symptoms Objective Exam General Appearance: no apparent distress, alert Neurologic Exam: alert, 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, cooperative, normal mood/affect, nml cerebellar function, sensation nml, No motor deficits Skin Exam: normal color, warm, dry Eye Exam: PERRL, EOMI, eyes nml inspection Ears, Nose, Throat Exam: normal ENT inspection, pharynx normal, moist mucous membranes Neck Exam: normal inspection, non-tender, supple, full range of motion Respiratory Exam: normal breath sounds, lungs clear, No respiratory distress Cardiovascular Exam: regular rate/rhythm, normal heart sounds Gastrointestinal/Abdomen Exam: soft, No tenderness, No mass Extremity Exam: normal inspection, normal range of motion Back Exam: normal inspection, normal range of motion, No CVA tenderness, No vertebral tenderness Male Genitalia Exam: deferred Rectal Exam: deferred OBJECTIVE DATA Vital Signs: Vital Signs - 24 hr Temp Pulse Resp BP Pulse Ox 05/07/22 08:00 98.0 F 43 L 22 116/56 98 05/07/22 04:00 97.7 F 54 L 20 134/70 98 05/06/22 23:53 98.2 F 59 L 18 138/91 98 05/06/22 20:00 53 L 20 150/86 97 05/06/22 16:00 97.5 F 53 L 19 139/94 97 05/06/22 12:00 97.9 F 46 L 19 131/76 96 Pain Assessment - Last Documented Pain Intensity [address] [facility] Intake and Output: Intake & Output 05/04/22 05/05/22 05/06/22 05/07/22 11:59 11:59 11:59 11:59 Intake Total 1680 2406 2438 2572 Balance 1680 2406 2438 2572 Lab Results: Lab Results-Last 24 Hours 05/06/22 05/06/22 Range/Units 10:20 10:20 WBC 11.1 H (4.0-10.5) x10^3/uL RBC 4.46 (4.1-5.6) x10^6/uL Hgb 13.2 (12.5-18.0) g/dL Hct 41.8 L (42-50) % MCV 93.7 (78-100) fL MCH 29.6 (26-32) pg MCHC 31.6 L (32-36) g/dL RDW 13.6 (11.5-14.0) % Plt Count 285 (150-450) x10^3/uL MPV 10.8 (7.5-11.0) fL Gran % 55.4 (36.0-66.0) % Immature Gran % (Auto) 1.3 H (0.00-0.4) % Nucleat RBC Rel Count 0.0 (0.00-0.1) % Eos # (Auto) 0.64 H (0-0.5) x10^3/uL Immature Gran # (Auto) 0.15 H (0.00-0.03) x10^3u/L Absolute Lymphs (auto) 3.28 (1.0-4.6) x10^3/uL Absolute Monos (auto) 0.82 (0.0-1.3) x10^3/uL Absolute Nucleated RBC 0.00 (0.00-0.01) x10^3u/L Lymphocytes % 29.4 (24.0-44.0) % Monocytes % 7.4 (0.0-12.0) % Eosinophils % 5.7 H (0.00-5.0) % Basophils % 0.8 (0.0-0.4) % Absolute Granulocytes 6.16 (1.4-6.9) x10^3/uL Basophils # 0.09 (0-0.4) x10^3/uL Sodium 141 (137-145) mmol/L Potassium 3.7 (3.5-5.1) mmol/L Chloride 107 (98-107) mmol/L Carbon Dioxide 28 (22-30) mmol/L Anion Gap 9.4 (5-15) MEQ/L BUN 4 L (9-20) mg/dL Creatinine 0.89 (0.66-1.25) mg/dL Estimated GFR > 60.0 ML/MIN Glucose 102 (74-106) mg/dL Calcium 8.7 (8.4-10.2) mg/dL Total Bilirubin 0.40 (0.2-1.3) mg/dL AST 45 (17-59) U/L ALT 51 H (0-50) U/L Alkaline Phosphatase 59 (38-126) U/L Serum Total Protein 6.6 (6.3-8.2) g/dL Albumin 3.3 L (3.5-5.0) g/dL Multi-Disciplinary Progress Notes: Multi-Disciplinary Progress Notes 05/07/22 06:57 Pharmacy Note by Jamshid Choudhury Pharmacokinetic dosing service Date: 05/06/22 Time: 1500 Objective: Patient: Abran Alvarez Floor: 117 Age: 22 yo Serum creatinine: 0.89 mg/dL Height: 75 Inches Weight (kg): 153 Diagnosis: skin infection buttocks Relevant medical/social history: Cultures and sensitivities: mrsa sensitive to vancomycin Other labs: [id number] [id number] Assessment: IBW (kg): 84.50 Dosing wt(kg): 153 Estimated Creatinine clearance (ml/min): 130 Clearance limited to 130 ml/min to reduce risk of overdosing. CRCL method: Cockcroft and Gault using ibw(default). Drug selected: Vancomycin Loading dose (mg): 0 Vd (liters): 122.4 (factor used: 0.8 L/kg) Anthony (hr-1): 0.112 Half life (hrs): 6.19 Recommended dose: 2000 mg Interval: 8 hrs Infusion time (hrs): 2.0 Predicted peak (mcg/mL): 24.7 Predicted trough (mcg/mL): 12.61 Total body weight is being used for vancomycin dosing. Renal function is stable [xxx ] /unstable [ ] Recommendations: Give Vancomycin 2000 mg q 8 hrs with an expected Cpeak of 24.7 mcg/ml and an expected Ctrough of 12.61 mcg/ml Renal dosing of other antibiotics (review renal dosing of other medications and list guidelines here): Thank you for the consult, will continue to follow. Signature: nael Initialized on 05/07/22 06:57 - END OF NOTE 05/06/22 11:21 Nutrition Note by Sydney Villalba F/u Note: Diet resumed to house regular with 100% po intake. Labs 05/06= BUN 4, alb 3.3. no weight since 05/02. Recommend to con't with house regular diet. goal #1)maintain po intake >=75% Will monitor and f/u prn. PASHA Macias Initialized on 05/06/22 11:21 - END OF NOTE Assessment/Plan (1) Cellulitis Current Visit: Yes Status: Acute Qualifiers: Site of cellulitis: buttock Qualified Code(s): L03.317 - Cellulitis of buttock Assessment & Plan: Chief Complaint Diagnosis CELLULITIS, WOUND CARE Allergies Allergy/AdvReac Type Severity Reaction Status Date / Time No Known Drug Allergies Allergy Verified 05/01/22 19:46 Vital Signs (Last 24 hours) Temp Pulse Resp BP Pulse Ox 05/07/22 08:00 98.0 F 43 L 22 116/56 98 05/07/22 04:00 97.7 F 54 L 20 134/70 98 05/06/22 23:53 98.2 F 59 L 18 138/91 98 05/06/22 20:00 53 L 20 150/86 97 05/06/22 16:00 97.5 F 53 L 19 139/94 97 05/06/22 12:00 97.9 F 46 L 19 131/76 96 Home Medications Medication Instructions Recorded Confirmed Last Taken Type Hydrocodone/Acetaminophen 1 each PO Q6H PRN PRN 5 Days #20 05/04/22 Unknown Rx [Hydrocodone-Acetamin 10-325 mg] tablet MDD 4 Current Medications Generic Name Dose Route Start Last Admin Trade Name Antony PRN Reason Stop Dose Admin Hydrocodone Bitart/Acetaminophen 1 tablet 05/04/22 12:56 05/06/22 22:47 Hydrocodone/Acetamin 10-325 Mg Tablet PO 05/09/22 12:55 1 tablet Q4H PRN PRN Administration PAIN Alprazolam 0.25 mg 05/06/22 07:22 05/06/22 22:47 Alprazolam 0.25 Mg Tablet PO 06/05/22 07:21 0.25 mg QID PRN PRN Administration ANXIETY/AGITATION Device 1 05/08/22 08:30 Therapuetic Drug Level Monitor Each IJ 05/08/22 08:31 1XONLY ONE Vancomycin HCl 2 gm in 400 mls @ 200 mls/hr 05/06/22 17:00 05/07/22 00:22 Vancomycin 2 Gram/400 Ml Bag IV 06/05/22 16:59 200 mls/hr Q8H ROSE Administration Morphine Sulfate 3 mg 05/02/22 20:08 05/06/22 18:50 Morphine Sulfate 4 Mg/Ml Injection IV 05/07/22 20:07 3 mg Q1HPRN PRN Administration PAIN Ondansetron HCl 4 mg 05/02/22 00:36 Ondansetron Hcl 4 Mg/2 Ml Vial IV 06/01/22 00:35 Q6H PRN PRN NAUSEA/VOMITING Discontinued Medications Generic Name Dose Route Start Last Admin Trade Name Antony PRN Reason Stop Dose Admin Hydrocodone Bitart/Acetaminophen 1 tab 05/02/22 20:09 05/03/22 23:48 Hydrocodone/Apap 5/325 Mg Tablet PO 05/07/22 20:08 1 tab Q4H PRN PRN Administration PAIN Alprazolam 0.25 mg 05/06/22 10:00 Alprazolam 0.25 Mg Tablet PO 06/05/22 09:59 QID ROSE Alprazolam 0.25 mg 05/05/22 23:00 05/05/22 23:01 Alprazolam 0.25 Mg Tablet PO 06/05/22 09:59 0.25 mg QID PRN Administration ANXIETY/AGITATION Vancomycin HCl 1 gm in 200 mls @ 125 mls/hr 05/01/22 22:32 05/01/22 23:16 Vancomycin 1 Gram/200 Ml Bag IV 05/02/22 00:07 125 ml/hr STAT ONE 125 mls/hr Administration Piperacillin Sod/Tazobactam 100 mls @ 200 mls/hr 05/01/22 22:33 05/01/22 22:40 Sod 3.375 gm/ Sodium Chloride IV 05/01/22 23:02 200 mls/hr STAT ONE Administration Sodium Chloride Confirm 05/01/22 22:38 Sodium Chloride 100ml Mini-Bag Plus Administered 05/01/22 22:39 Dose 100 mls @ ud IV .STK-MED ONE Vancomycin HCl Confirm 05/01/22 23:15 Vancomycin 1 Gram/200 Ml Bag Administered 05/01/22 23:16 Dose 1 gm in 200 mls @ ud IV .STK-MED ONE Piperacillin Sod/Tazobactam 100 mls @ 200 mls/hr 05/02/22 06:00 05/06/22 13:09 Sod 3.375 gm/ Sodium Chloride IV 05/08/22 05:59 200 mls/hr Q6HT ROSE Administration Sodium Chloride Confirm 05/02/22 04:36 Sodium Chloride 100ml Mini-Bag Plus Administered 05/02/22 04:37 Dose 100 mls @ ud IV .STK-MED ONE Lactated Ringer's 1,000 mls @ 50 mls/hr 05/02/22 18:00 05/03/22 16:18 Lactated Ringers IV 06/01/22 17:59 Not Given .Q20H ROSE Metronidazole 500 mg in 100 mls @ 200 mls/hr 05/02/22 22:00 05/06/22 14:05 Flagyl 500 Mg Ivpb IV 06/01/22 21:59 200 mls/hr Q8HT ROSE Administration Lidocaine/Epinephrine Confirm 05/02/22 18:43 Lidocaine Hcl/Epinephrine 1% 20 Ml Administered 05/02/22 18:44 Dose 1 ml .ROUTE .STK-MED ONE Morphine Sulfate 4 mg 05/01/22 20:23 05/01/22 20:37 Morphine Sulfate 4 Mg/Ml Injection IV 05/01/22 20:24 4 mg STAT ONE Administration Morphine Sulfate Confirm 05/01/22 20:35 Morphine Sulfate 4 Mg/Ml Injection Administered 05/01/22 20:36 Dose 4 mg .ROUTE .STK-MED ONE Morphine Sulfate 4 mg 05/02/22 00:36 05/02/22 22:20 Morphine Sulfate 4 Mg/Ml Injection IV 05/07/22 00:35 4 mg Q4H PRN PRN Administration PAIN Morphine Sulfate Confirm 05/02/22 19:18 Morphine Sulfate 10 Mg/Ml Injection Administered 05/02/22 19:19 Dose 10 mg .ROUTE .STK-MED ONE Non-Formulary Medication 1 each 05/06/22 16:05 05/06/22 18:38 Pharmacy Dose Request: Vancomycin 1 Each IV 05/06/22 16:06 1 each STAT STA Administration Ondansetron HCl 4 mg 05/01/22 20:24 05/01/22 20:37 Ondansetron Hcl 4 Mg/2 Ml Vial IV 05/01/22 20:25 4 mg STAT ONE Administration Ondansetron HCl Confirm 05/01/22 20:35 Ondansetron Hcl 4 Mg/2 Ml Vial Administered 05/01/22 20:36 Dose 4 mg .ROUTE .STK-MED ONE Piperacillin Sod/Tazobactam Sod Confirm 05/01/22 22:38 Piperacillin/Tazobactam Sodium 3.375 Gm Vial Administered 05/01/22 22:39 Dose 3.375 gm IV .STK-MED ONE Piperacillin Sod/Tazobactam Sod Confirm 05/02/22 04:34 Piperacillin/Tazobactam Sodium 3.375 Gm Vial Administered 05/02/22 04:35 Dose 3.375 gm IV .STK-MED ONE Intake & Output (Last 24 hours) 05/04/22 05/05/22 05/06/22 05/07/22 11:59 11:59 11:59 11:59 Intake Total 1680 2406 2438 2572 Balance 1680 2406 2438 2572 Laboratory Results (Last 24 hours) 05/06/22 05/06/22 10:20 10:20 WBC 11.1 H RBC 4.46 Hgb 13.2 Hct 41.8 L MCV 93.7 MCH 29.6 MCHC 31.6 L RDW 13.6 Plt Count 285 MPV 10.8 Gran % 55.4 Immature Gran % (Auto) 1.3 H Nucleat RBC Rel Count 0.0 Eos # (Auto) 0.64 H Immature Gran # (Auto) 0.15 H Absolute Lymphs (auto) 3.28 Absolute Monos (auto) 0.82 Absolute Nucleated RBC 0.00 Lymphocytes % 29.4 Monocytes % 7.4 Eosinophils % 5.7 H Basophils % 0.8 Absolute Granulocytes 6.16 Basophils # 0.09 Sodium 141 Potassium 3.7 Chloride 107 Carbon Dioxide 28 Anion Gap 9.4 BUN 4 L Creatinine 0.89 Estimated GFR > 60.0 Glucose 102 Calcium 8.7 Total Bilirubin 0.40 AST 45 ALT 51 H Alkaline Phosphatase 59 Serum Total Protein 6.6 Albumin 3.3 L Orders (Last 24 hours) Category Date Time Status CBC W DIFF Routine Lab 05/06/22 10:20 Completed CMP Routine Lab 05/06/22 10:20 Completed Vancomycin, Trough Urgent Lab 05/08/22 08:30 Ordered ALPRAZolam 0.25 MG [xanAX 0.25 MG] Med 05/06/22 10:00 Discontinued 0.25 mg PO QID Pharmacy Dose Request: Vancomy [Pharmacy Dosing Med 05/06/22 16:05 Discontinued Required: Vancomycin] 1 each IV STAT STA Therapuetic Drug Level Monitor [Trough Drug Levels] Med 05/08/22 08:30 Once 1 IJ 1XONLY ONE Vancomycin/Water For Inj (Peg) [Vancomycin 2 Gram/400 Med 05/06/22 17:00 Active ml Bag] 2 gm in 400 ml IV Q8H Patient Care Notes (Last 24 hours) 05/07/22 06:57 Pharmacy Note by Jamshid Choudhury Pharmacokinetic dosing service Date: 05/06/22 Time: 1500 [facility] [address] Age: 22 yo Serum creatinine: 0.89 mg/dL Height: 75 Inches Weight (kg): 153 Diagnosis: skin infection buttocks Relevant medical/social history: Cultures and sensitivities: mrsa sensitive to vancomycin Other labs: wbc [id number] Assessment: IBW (kg): 84.50 Dosing wt(kg): 153 Estimated Creatinine clearance (ml/min): 130 Clearance limited to 130 ml/min to reduce risk of overdosing. CRCL method: Cockcroft and Gault using ibw(default). Drug selected: Vancomycin Loading dose (mg): 0 Vd (liters): 122.4 (factor used: 0.8 L/kg) Anthony (hr-1): 0.112 Half life (hrs): 6.19 Recommended dose: 2000 mg Interval: 8 hrs Infusion time (hrs): 2.0 Predicted peak (mcg/mL): 24.7 Predicted trough (mcg/mL): 12.61 Total body weight is being used for vancomycin dosing. Renal function is stable [xxx ] /unstable [ ] Recommendations: Give Vancomycin 2000 mg q 8 hrs with an expected Cpeak of 24.7 mcg/ml and an expected Ctrough of 12.61 mcg/ml Renal dosing of other antibiotics (review renal dosing of other medications and list guidelines here): Thank you for the consult, will continue to follow. Signature: nael Initialized on 05/07/22 06:57 - END OF NOTE 05/06/22 11:21 Nutrition Note by Sydney Villalba F/u Note: Diet resumed to house regular with 100% po intake. Labs 05/06= BUN 4, alb 3.3. no weight since 05/02. Recommend to con't with house regular diet. goal #1)maintain po intake >=75% Will monitor and f/u prn. TPASHA Barba Initialized on 05/06/22 11:21 - END OF NOTE Code(s): L03.90 - CELLULITIS, UNSPECIFIED (2) Hepatomegaly Current Visit: Yes Status: Acute Code(s): R16.0 - HEPATOMEGALY, NOT ELSEWHERE CLASSIFIED
[2022-05-07] MEDS: HYDROCODONE-ACETAMIN 10-325 MG PO PRN ×2 (10:19→15:14)
[2022-05-07] MEDS: MORPHINE SULFATE 4 MG INJ IV PRN (16:07)
[2022-05-07 17:47] VITALS: BP 168/84; PULSE 50
[2022-05-08] MEDS ORDERED: TROUGH DRUG LEVELS IJ ONE (08:30)
== END 2022-05-07 17:06 | disposition home or self-care (01) | DRG 344 ==
LOC: ED 19:34 → MED SURG 05-02 00:33 → OBSVTOIN 05-03 12:00
PROVIDERS: ADMIT General Practice; ATTEND General Practice
PROC: 0D9P0ZZ Drainage of Rectum, Open Approach (ICD-10-PCS; principal; 2022-05-02)
DX: K61.1 Rectal abscess (principal); U07.1 COVID-19; R16.0 Hepatomegaly, not elsewhere classified; L02.31 Cutaneous abscess of buttock; R00.1 Bradycardia, unspecified; H11.32 Conjunctival hemorrhage, left eye; Z20.828 Contact with and (suspected) exposure to other viral communicable diseases
CPT/HCPCS: 0241U; 36000; 36415; 74177; 80048; 80053; 85025; 85027; 87070; 87077; 87186; 93268; 96365; 96367; 96374; 96375; 99285; J1100; J1885; J2270; J2405; J2704; J3010; A9270-GY; G0378; J3370

== ENCOUNTER 2024-03-17 11:43 | Emergency (ER) | payer SELFPAY ==
[2024-03-17 11:54] VITALS: BP 132/74; PULSE 60; RESP 20; TEMP 97.8; O2SAT 97
--- NOTE | 2024-03-17 12:03 | ERPHSYRPT ---
- History of Present Illness Time Seen by Provider: 03/17/24 11:58 Source: patient Exam Limitations: no limitations Patient Subjective Stated Complaint: Pt states "I had bone marrow scraped off my right heel a couple years ago and now on and off my right ankle will swell and I cannot walk well. It started to swell yesterday and I was supposed to go to work today but couldn't stand on it and it hurts." Triage Nursing Assessment: pt presented alert and oriented X 3, skin wpd. pt ambulates with a limp. PT able to speak in clear full sentences. Pt right ankle swollen and tender. Physician History: 24-year-old male presents to our ED for evaluation of right ankle pain. Patient states he has chronic intermittent right ankle pain. Symptoms started a couple years ago after he had a scraping done of his bone marrow per patient. No trauma. No fever. No nausea no vomiting. Patient's pain worse when he bears weight. Pain improves at rest. Patient had Tylenol Motrin at 4 AM. Patient requesting additional pain medication at this time. Patient also states he is scheduled to work today patient requesting a work note. Family at bedside. No associated knee hip or back pain. Patient otherwise healthy he voices no other complaints or concerns at this time. Portions of this note were created with voice recognition technology. There may be grammatical, spelling, punctuation or sound alike errors Method of Injury: unknown Occurred: this morning Quality: constant Severity of Pain-Max: moderate Severity of Pain-Current: mild Lower Extremities Pain: ankle: right Modifying Factors: Improves With: movement Associated Symptoms: none (Weightbearing) Allergies/Adverse Reactions: No Known Drug Allergies Allergy (Verified 05/01/22 19:46) Home Medications: No Reportable Medications [No Reported Medications] 03/17/24 [History] Hx Tetanus, Diphtheria Vaccination/Date Given: No Hx Influenza Vaccination/Date Given: No Hx Pneumococcal Vaccination/Date Given: No Immunizations Up to Date: No Travel Risk - International Travel Have you traveled outside of the country in past 3 weeks: No - Emerging Infectious Disease Are you exhibiting symptoms associated with any current EIDs: No - Review of Systems Constitutional: No Symptoms, No Fever, No Chills Eyes: No Symptoms Ears, Nose, & Throat: No Symptoms Respiratory: No Symptoms, No Cough, No Dyspnea Cardiac: No Symptoms, No Chest Pain, No Edema, No Syncope Abdominal/Gastrointestinal: No Symptoms, No Abdominal Pain, No Nausea, No Vomiting, No Diarrhea Genitourinary Symptoms: No Symptoms, No Dysuria Musculoskeletal: No Symptoms, No Back Pain, No Neck Pain Skin: No Symptoms, No Rash Neurological: No Symptoms, No Dizziness, No Focal Weakness, No Sensory Changes Psychological: No Symptoms Endocrine: No Symptoms Hematologic/Lymphatic: No Symptoms Immunological/Allergic: No Symptoms All Other Systems: Reviewed and Negative - Past Medical History Pertinent Past Medical History: Yes Neurological History: No Pertinent History ENT History: No Pertinent History Cardiac History: No Pertinent History Respiratory History: No Pertinent History Endocrine Medical History: No Pertinent History Musculoskeletal History: Fractures GI Medical History: No Pertinent History History: No Pertinent History Psycho-Social History: Attention Deficit Disorder Male Reproductive Disorders: No Pertinent History - Past Surgical History Past Surgical History: Yes Cardiac: No Pertinent History Gastrointestinal: No Pertinent History Genitourinary: No Pertinent History Musculoskeletal: Orthopedic Surgery Other Surgical History: tonsilectomy - Social History Smoking Status: Never smoker Exposure to second hand smoke: Yes Drug Use: marijuana Patient Lives Alone: No - Social Determinants of Health Will the patient participate in the screening: Declined to provide - Nursing Vital Signs Nursing Vital Signs: Initial Vital Signs Temperature 97.8 F 03/17/24 11:49 Pulse Rate 60 03/17/24 11:49 Respiratory Rate 20 03/17/24 11:49 Blood Pressure 132/74 03/17/24 11:49 O2 Sat by Pulse Oximetry 97 03/17/24 11:49 Pain Scale Pain Intensity 10 - Physical Exam General Appearance: no apparent distress, alert Eyes, Ears, Nose, Throat Exam: moist mucous membranes Neck Exam: non-tender, supple Cardiovascular/Respiratory Exam: chest non-tender, normal breath sounds, regular rate/rhythm, no respiratory distress Gastrointestinal/Abdominal Exam: non-tender, guarding Back Exam: normal inspection, No vertebral tenderness Hips Exam: bilateral: non-tender, normal inspection, normal range of motion, no evidence of injury Legs Exam: bilateral leg: non-tender, normal inspection, normal range of motion, no evidence of injury Knees Exam: bilateral knee: non-tender, normal inspection, normal range of motion, no evidence of injury Ankle Exam: right ankle: swelling (Some swelling right lateral ankle. Overlying soft tissue intact. No signs of trauma. No cellulitis. Compartments are soft PT DP pulse palpable.), left ankle: non-tender, normal inspection, normal range of motion, no evidence of injury Foot Exam: bilateral foot: non-tender, normal inspection, normal range of motion, no evidence of injury Neuro/Tendon Exam: normal sensation, normal motor functions Mental Status Exam: alert, 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, cooperative Skin Exam: normal color, warm, dry SpO2 Interpretation: normal SpO2: 97 O2 Delivery: Room Air - Course Nursing assessment & vital signs reviewed: Yes - CT Exams Abdomen/Pelvis CT Interpretation: Tele-radiologist Report (No fracture or dislocation) Ordered Tests: Active Orders 24 hr Category Date Time Status ANKLE (3 VIEWS) Stat Exams 03/17/24 11:56 Completed Medication Summary Discontinued Medications Generic Name Dose Route Start Last Admin Trade Name Freq PRN Reason Stop Dose Admin Ketorolac Tromethamine 30 mg 03/17/24 12:39 03/17/24 12:43 Ketorolac Tromethamine 30 Mg/Ml Inj IM 03/17/24 12:40 30 mg STAT ONE Administration Ketorolac Tromethamine Confirm 03/17/24 12:41 Ketorolac Tromethamine 30 Mg/Ml Inj Administered 03/17/24 12:42 Dose 30 mg .ROUTE .STICU Metrix-MED ONE - Progress Progress: improved Progress Note: 24-year-old male presents to emergency department for evaluation of pain to his right ankle. Physical exam reveals some swelling superficial to the right lateral malleolus. X-ray negative for fracture dislocation. IM Toradol administered for pain control. Portions of this note were created with voice recognition technology. There may be grammatical, spelling, punctuation or sound alike errors Complexity problem addressed is moderate acute complicated. No critical care time. Complex of data reviewed and analyzed is moderate. Dr. Blanco reviewed the x-ray of the right ankle. Risk of complication or risk of morbidity/mortality patient management is low. Vital stable. Time spent to discharge patient approximately 10 minutes. Plan of care established for shared decision making. No social determinants felt present impede follow-up. Portions of this note were created with voice recognition technology. There may be grammatical, spelling, punctuation or sound alike errors Patient referred to the orthopedic clinic. Patient declined crutches. Patient reports he has crutches at home. work note provided per patient's request 03/17/24 12:39 03/17/24 12:44 Counseled pt/family regarding: lab results, diagnosis, need for follow-up, rad results - Departure Departure Disposition: Home Clinical Impression: Ankle pain, right Condition: Stable Critical Care Time: No Additional Instructions: Discharge/Care Plan MORENA MARIEE was seen on 03/17/24 in the Emergency Room. The patient was counseled regarding Diagnosis,Lab results, Imaging studies, need for follow up and when to return to the Emergency Room. Prescriptions given: Discharge Note I have spoken with the patient and/or caregivers. I have explained the patient's condition, diagnosis and treatment plan based on the information available to me at this time. I have answered the patient's and/or caregiver's questions and addressed any concerns. The patient and/or caregivers have as good understanding of the patient's diagnosis, condition and treatment plan as can be expected at this point. The vital signs have been stable. The patient's condition is stable and appropriate for discharge from the emergency department. The patient will pursue further outpatient evaluation with the primary care physician or other designated or consulting physician as outlined in the discharge instructions. The patient and/or caregivers are agreeable to this plan of care and follow-up instructions have been explained in detail. The patient and/or caregivers have received these instruction. The patient/and or caregivers are aware that any significant change in condition or worsening of symptoms should prompt an immediate return to this or the closest emergency department or call 911. Forms: Work/School Release Form Outpatient Orders: Ortho Referral Time Frame: 1 Day, Facility: [facility], Location: [facility]
--- NOTE | 2024-03-17 12:36 | XRAY ---
Indication: Pain. Comparison: November 20, 2021 3 view right ankle again demonstrate mild soft tissue swelling. No new/acute bony, articular, or soft tissue abnormalities.
[2024-03-17] MEDS ORDERED: TORAdol 30 mg Injection ONE (12:41)
[2024-03-17] MEDS: TORAdol 30 mg Injection IM ONE (12:43)
== END 2024-03-17 12:59 | disposition home or self-care (01) ==
LOC: ED 11:43
DX: M25.571 Pain in right ankle and joints of right foot (principal)
CPT/HCPCS: 73610; 96372; 99283; J1885

== ENCOUNTER 2024-07-06 11:29 | Emergency (ER) | payer OTHER ==
[2024-07-06 11:43] VITALS: BP 144/82; PULSE 62; RESP 18; TEMP 97.2; O2SAT 97
--- NOTE | 2024-07-06 11:50 | ERPHSYRPT ---
- History of Present Illness Time Seen by Provider: 07/06/24 11:45 Source: patient Exam Limitations: no limitations Patient Subjective Stated Complaint: C/O right sided jaw pain. Patient has a dentist appointment on 07/27/24. Triage Nursing Assessment: Patient ambulated back to ER without difficulties. He is alert and oriented. Skin tone normal. No SOB. No obvious cavities noted to right side of mouth where pain is located. Right back upper gums may be a bit swollen. Allergies/Adverse Reactions: No Known Drug Allergies Allergy (Verified 07/06/24 11:34) Hx Tetanus, Diphtheria Vaccination/Date Given: No Hx Influenza Vaccination/Date Given: No Hx Pneumococcal Vaccination/Date Given: No Immunizations Up to Date: Yes Travel Risk - International Travel Have you traveled outside of the country in past 3 weeks: No - Emerging Infectious Disease Are you exhibiting symptoms associated with any current EIDs: No - Past Medical History Pertinent Past Medical History: Yes Neurological History: No Pertinent History ENT History: No Pertinent History Cardiac History: No Pertinent History Respiratory History: No Pertinent History Endocrine Medical History: No Pertinent History Musculoskeletal History: Fractures GI Medical History: No Pertinent History History: No Pertinent History Psycho-Social History: Attention Deficit Disorder Male Reproductive Disorders: No Pertinent History - Past Surgical History Past Surgical History: Yes Cardiac: No Pertinent History Gastrointestinal: No Pertinent History Genitourinary: No Pertinent History Musculoskeletal: Orthopedic Surgery Other Surgical History: tonsilectomy - Social History Smoking Status: Never smoker Exposure to second hand smoke: Yes Drug Use: none Patient Lives Alone: No - Social Determinants of Health Will the patient participate in the screening: Declined to provide - Nursing Vital Signs Nursing Vital Signs: Initial Vital Signs Temperature 97.2 F 07/06/24 11:36 Pulse Rate 62 07/06/24 11:36 Respiratory Rate 18 07/06/24 11:36 Blood Pressure 144/82 07/06/24 11:36 O2 Sat by Pulse Oximetry 97 07/06/24 11:36 Pain Scale Pain Intensity 10 - Physical Exam SpO2: 97 - Departure Departure Disposition: Home Clinical Impression: Gingivitis Condition: Stable Critical Care Time: No Referrals: DOCTOR,NO FAMILY [Primary Care Provider] - Follow up/PCP as directed Prescriptions: Hydrocodone/Acetaminophen [Hydrocodone-Acetamin 5-325 mg] 1 tab PO Q6HPRN PRN #14 tablet MDD 4 PRN Reason: Pain clindamycin HCL [Clindamycin HCl] 300 mg PO QID #20 cap
== END 2024-07-06 12:07 | disposition home or self-care (01) ==
LOC: ED 11:29
DX: K05.10 Chronic gingivitis, plaque induced (principal); Z79.891 Long term (current) use of opiate analgesic; Z79.899 Other long term (current) drug therapy
CPT/HCPCS: 99281

== ENCOUNTER 2024-07-17 18:44 | Emergency (ER) | payer OTHER ==
[2024-07-17 18:59] VITALS: TEMP 98.1
--- NOTE | 2024-07-17 19:03 | ERPHSYRPT ---
- History of Present Illness Time Seen by Provider: 07/17/24 19:02 Source: patient, family Exam Limitations: no limitations Patient Subjective Stated Complaint: Pt was in this ER on 07/06 and received hydrocodone and clindamycin for abscess teeth and states that he is out of medicine now and has an appt on 07/27 with a dentist, pt states that he hit his head yesterday on a board and c/o today of dizziness and head pain Triage Nursing Assessment: Pt was brought to the ER by his girlfriend/, rates pain as /, pulses normal, skin n/w/d, reports pain in the back of his head that radiates to the front, denies LOC, denies N&V, doesn't appear to be in any distress Physician History: This is a 24-year-old white male patient who does not have a primary care provider who presents with his spouse by private vehicle secondary to headache pain after hitting his head in the occipital region yesterday. This morning when he woke up he was having a headache and dizziness. Recently, patient also is being treated for a dental infection. He has an appointment to see a dentist next week. He has completed his pain medicine and antibiotics for that last visit. Patient did not lose consciousness. He has no nausea vomiting or visual changes. Occurred: yesterday Severity: mild (To moderate) Head Injury Location: occipital Method of Injury: direct blow Loss of Consciousness: no loss of consciousness Associated Symptoms: headaches, other (Intermittent dizziness) Allergies/Adverse Reactions: No Known Drug Allergies Allergy (Verified 07/17/24 18:59) Home Medications: No Reportable Medications [No Reported Medications] 07/17/24 [History] Hx Tetanus, Diphtheria Vaccination/Date Given: No Hx Influenza Vaccination/Date Given: No Hx Pneumococcal Vaccination/Date Given: No Travel Risk - International Travel Have you traveled outside of the country in past 3 weeks: No - Emerging Infectious Disease Are you exhibiting symptoms associated with any current EIDs: No - Review of Systems Constitutional: No Symptoms Eyes: No Symptoms Ears, Nose, & Throat: No Symptoms Respiratory: No Symptoms Cardiac: No Symptoms Abdominal/Gastrointestinal: No Symptoms Genitourinary Symptoms: No Symptoms Musculoskeletal: No Symptoms Skin: No Symptoms Neurological: Dizziness, Headache Psychological: No Symptoms Endocrine: No Symptoms Hematologic/Lymphatic: No Symptoms Immunological/Allergic: No Symptoms All Other Systems: Reviewed and Negative - Past Medical History Pertinent Past Medical History: Yes Neurological History: No Pertinent History ENT History: No Pertinent History Cardiac History: No Pertinent History Respiratory History: No Pertinent History Endocrine Medical History: No Pertinent History Musculoskeletal History: Fractures GI Medical History: No Pertinent History History: No Pertinent History Psycho-Social History: Attention Deficit Disorder Male Reproductive Disorders: No Pertinent History - Past Surgical History Past Surgical History: Yes Cardiac: No Pertinent History Gastrointestinal: No Pertinent History Genitourinary: No Pertinent History Musculoskeletal: Orthopedic Surgery Other Surgical History: tonsilectomy - Social History Smoking Status: Never smoker Exposure to second hand smoke: Yes Drug Use: none Patient Lives Alone: No - Social Determinants of Health Will the patient participate in the screening: Yes Do you worry about a steady place to live?: No Do you have any problems with any of the following?: No known problems In the past 12 months,have you had to go without utilities?: No Transportation Issues: No Has anyone in your support network made you feel unsafe?: No Have you or anyone in your house had to go without enough: No - Nursing Vital Signs Nursing Vital Signs: Initial Vital Signs Temperature 98.1 F 07/17/24 18:49 Pulse Rate 71 07/17/24 18:49 Blood Pressure 131/85 07/17/24 18:49 O2 Sat by Pulse Oximetry 96 07/17/24 18:49 Pain Scale Pain Intensity 10 - Dae Coma Score Best Eye Response (Dae): (4) open spontaneously Best Verbal Response ([place]): (5) oriented Best Motor Response (Dae): (6) obeys commands Dae Total: 15 - Physical Exam General Appearance: no apparent distress, alert, anxiety, obese Head Injury: no evidence of injury Eye Exam: bilateral eye: normal inspection, PERRL, EOMI ENT Exam: airway nml, nml ext.inspection, No evidence of ENT injury Neck Exam: supple, trachea midline, full range of motion, normal alignment, normal inspection Cardiovascular/Respiratory Exam: chest non-tender, normal breath sounds, regular rate/rhythm, heart sounds normal, no ecchymosis, no JVD, no M/R/G, no respiratory distress Gastrointestinal/Abdominal Exam: non tender Rectal Exam: not done Back Exam: normal inspection, normal range of motion, No CVA tenderness, No vertebral tenderness Extremity Exam: non-tender, normal range of motion, normal inspection, normal capillary refill, no calf tenderness, no pedal edema, pelvis stable Mental Status Exam: alert, 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, 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 Exam: normal hearing, normal speech, PERRL, tongue midline Coordination/Gait Exam: normal gait, normal cerebellar function Skin Exam: normal color, warm, dry Lymphatic Exam: No adenopathy SpO2 Interpretation: normal SpO2: 96 O2 Delivery: Room Air - Course Nursing assessment & vital signs reviewed: Yes Ordered Tests: Active Orders 24 hr Category Date Time Status HEAD WITHOUT CONTRAST [CT] Stat Exams 07/17/24 19:03 Taken - Progress Progress: unchanged, pain not gone completely, re-examined Progress Note: 07/17/24 20:11 My medical decision making and the assignment of low complexity to this patient's medical issue today is based on review of the patient's past medical history, review the patient's medication list, review patient drug allergy list, history present illness and physical findings on examination. The workup in this patient today includes CT scan of the head without contrast. Differential diagnosis includes but is not limited to acute intracranial abnormality, fractured skull, contusion 07/17/24 20:[address] scan of the head without contrast was interpreted by the radiologist and I reviewed the impression. The impression states normal CT scan of the head without contrast. Counseled pt/family regarding: diagnosis, need for follow-up, rad results Medical Desision Making - Independent Historian Additional History obtained from: Spouse - Diagnostic Testing Diagnostic test were ordered, analyzed, and reviewed by me: Yes Radiological Interpretation: Reviewed by me, Teleradiologist Report - Risk of complications Low Risk: Low risk of morbidity from additional dx testing or treatment - Departure Departure Disposition: Home Clinical Impression: Head injury, acute Condition: Stable Critical Care Time: No Referrals: DOCTOR,NO FAMILY [Primary Care Provider] - Follow up/PCP as directed Additional Instructions: Drink plenty of fluids. After you use your Percocet medication, use Tylenol and ibuprofen for pain control. If you require additional pain management, contact your primary care provider and/or your dentist for further instructions and management of your pain. Contact your dentist to see if they wish for you to have additional antibiotics.
[2024-07-17 19:54] VITALS: RESP 18
--- NOTE | 2024-07-17 20:13 | XRAY ---
Indication: Head injury one day earlier. Pain and dizziness. Multiple contiguous axial images obtained through the head without contrast. Comparison: None Normal appearing brain parenchyma, ventricles, and bony calvarium. Visualized paranasal sinuses and mastoid air cells are clear. Impression: Normal CT head without contrast exam.
[2024-07-17] MEDS ORDERED: NORCO 5/325 MG ONE (20:15)
[2024-07-17] MEDS ORDERED: PERCOCET TABLET 5/325MG ONE (20:16)
[2024-07-17] MEDS: PERCOCET TABLET 5/325MG PO STA (20:22)
[2024-07-17 20:36] VITALS: BP 142/76; PULSE 98; O2SAT 97
== END 2024-07-17 20:36 | disposition home or self-care (01) ==
LOC: ED 18:44
DX: S09.90XA Unspecified injury of head, initial encounter (principal); W22.8XXA Striking against or struck by other objects, initial encounter; R51.9 Headache, unspecified; R42 Dizziness and giddiness
CPT/HCPCS: 70450; 99283; A9270-GY